=== PATIENT | male | born 1970 | race Caucasian/White ===

== ENCOUNTER 2019-09-02 13:44 | Emergency (ER) | payer OTHER, SELFPAY ==
[2019-09-02 13:44] VITALS: BP 147/103; PULSE 87; RESP 16; TEMP 36.9; BMI 30.7
[2019-09-02 14:15] VITALS: RESP 16
--- NOTE | 2019-09-02 14:56 | ED.DCSUM_ITS ---
- ER Visit Summary Date of Service: 09/02/19 Chief Complaint: Right lower jaw dental pain History of Present Illness: The patient is a 49 M with history of hypertension. States that the dental pain for the last 4 days. Denies any fall or trauma. Believes he has an appointment with [facility] tomorrow. Denies any fever or chills. No swelling of his face or jaw. No trouble swallowing or breathing. Physical Examination: Alert male no acute distress sitting upright in his chair. Vital signs are stable afebrile. H EENT exam is multiple missing teeth. His right lower jaw is complaining of pain he has a tooth that has multiple cavities. There is no gingival abscess. No gum swelling. There is no trismus. He is able to open and close his mouth. There is no facial swelling. No trouble breathing or swallowing. The floor of his mouth under his tongue is unremarkable and nonswollen. He has multiple areas of cavities on multiple teeth. Neck nontender. No lymphadenopathy. No swelling. Lungs clear to auscultation. Heart regular rhythm no murmur. Otherwise exam unremarkable. Test Results: None Emergency Department Course and Treatment: Patient with dental pain secondary to dental caries. Treatment Plan: Motrin for pain. I did explain to the patient I do not write for narcotics for dental pain. He will be given 2 [place] to take for pain when he gets home. Disposition: Discharge Impression: Dental pain secondary to dental caries This note was generated with [employer] dictation software. It may contain incorrect words, spelling, and punctuation that were not noted in review of the chart prior to signing ED Disposition - Plan for ED Patient: Referrals: Parker Bell MD [Primary Care Provider] -
--- NOTE | 2019-09-02 14:58 | ED.DEP ---
ED Disposition - Plan for ED Patient: Disposition: Home or Assisted Living Instructions: Dental Pain Prescriptions: Naproxen [Naprosyn] 500 mg PO BID PRN PRN #20 tab PRN Reason: Pain Or Fever Prescription Printed Referrals: Parker Bell MD [Primary Care Provider] - As Needed Additional Instructions: Follow-up with your dentist with your scheduled appointment. Ice to jaw decrease pain. Naprosyn for pain and inflammation. Appears to be the pain from dental cavities. There is no signs of infection at this time. This time he do not need antibiotic.
[2019-09-02] MEDS: HYDROcodone Bitartrate/Apap 5/325 Tablet PO (15:10)
[2019-09-02 15:11] VITALS: RESP 16
== END 2019-09-02 15:12 | disposition home or self-care (01) ==
LOC: ED 15:00
PROVIDERS: Emergency Provider Emergency Medicine; Family Provider Family Medicine; PCP Family Medicine
DX: K02.9 Dental caries, unspecified (principal); I10 Essential (primary) hypertension
CPT/HCPCS: 99283

== ENCOUNTER 2021-06-08 09:44 | Emergency (ER) | payer SELFPAY ==
[2021-06-08 09:45] VITALS: BP 149/107; PULSE 78; RESP 16; TEMP 35.9; O2SAT 100; BMI 29.7
--- NOTE | 2021-06-08 10:21 | RAD_ITS ---
STUDY: X-RAY - RIGHT KNEE REASON FOR EXAM: Male, 50 years old. Knee pain TECHNIQUE: 5 view(s) of the knee. COMPARISON: None. FINDINGS: Normal visualized distal femur. Normal visualized proximal tibia and fibula. Normal proximal tibiofibular articulation. Normal medial femorotibial compartment. Normal lateral femorotibial compartment. Normal patellofemoral articulation. The soft tissue structures are unremarkable. RAD/Knee 4 or More Views IMPRESSION: Normal x-ray examination of the knee. Electronically Signed: Niko Tse MD at 10:56 EDT , Service support ,
[2021-06-08] MEDS: Ketorolac 15 MG/ML Vial IM (10:27)
--- NOTE | 2021-06-08 11:20 | EX.ED.DYSGE1 ---
HPI History of Present Illness Chief Complaint: Lower Extremity Injury Narrative Narrative: 50-year-old male presenting with right knee pain. He describes it on the medial aspect of the right knee. Patient states that he has had pain here on and off for the last month. Today he states that he kneeled down to pick something up and felt acute pain here. He denies any previous known injury to this knee. Patient denies any surgeries on the knee. Patient states he is otherwise healthy and physically active. He denies paresthesias. He denies any direct trauma. Patient states he is having difficulty ambulating secondary to pain. [facility] Medical History Hypertension Medical History no medical history Home Medications losartan 100 mg PO DAILY 09/02/19 [History Last Taken Unknown] naproxen 500 mg PO BID PRN PRN #20 tab 09/02/19 [Rx Last Taken Unknown] naproxen [Naprosyn] 500 mg PO BID #30 tab 06/08/21 [Rx Last Taken Unknown] Allergy/AdvReac Type Severity Reaction Status Date / Time No Known Allergies Allergy Verified 09/02/19 13:46 Social History Smoking Status: Former smoker ROS ROS ED Constitutional Constitutional ED: Denies chills, fever(s) or weight loss Eyes Eyes: Denies blurry vision or change in vision ENT ENT ED: Denies rhinorrhea or sore throat Cardiovascular Cardiovascular: Denies chest pain or palpitations Respiratory/Chest Respiratory/Chest: Denies cough or dyspnea Gastrointestinal Gastrointestinal: Denies abdominal pain, nausea or vomiting Genitourinary Genitourinary ED: Denies dysuria or hematuria Musculoskeletal Musculoskeletal: Reports other Details: Right knee pain ; Denies back pain or neck pain Integumentary Denies Abrasions or rash Neurologic Neurologic: Denies headache(s) or paresthesias EXAM Physical Exam Const Vital Signs: 06/08/21 09:45 Temperature 96.7 F L Temperature Source Temporal Pulse Rate 78 Respiratory Rate 16 Blood Pressure 149/107 H Blood Pressure Mean 121 Pulse Ox 100 Oxygen Delivery Method Room Air Positive well nourished General Appearance ED: NAD; Negative for pallor HEENT Reports moist mucous membranes Negative for trauma Eyes PERRL and EOMs intact bilaterally Resp normal respiratory effort and clear to auscultation bilaterally Cardio regular rate and regular rhythm Extremity Extremity Narrative: Tenderness to palpation over the medial aspect of the right knee. Right extensor mechanism is intact. Range of motion is somewhat limited in full extension secondary to pain. There is pain elicited with valgus strain. No ligament laxity noted. Neuro oriented x3 and CN's II-XII intact bilaterally Sensorium / Orientation: alert Psych mental status grossly normal Skin no rashes or lesions noted General Skin Exam: Negative for jaundice or pallor MDM MDM MDM Narrative Medical decision making narrative: Patient was given a shot of Toradol IM. I obtained images of the right knee which on my interpretation showed no acute fracture or subluxation. The radiologist does agree. Patient was placed in an Billy wrap and he already has crutches. He will be given follow-up with his primary care provider if he is not improving his primary care refer him to orthopedics. I think likely this is a meniscal tear. Patient is counseled on ice, elevation, compression, alternating Tylenol and ibuprofen. Patient given return precautions. Impression: 1. Right knee sprain Radiography Diagnostic Testing: Radiology Impression Knee X-Ray 06/08/21 10:21 IMPRESSION: Normal x-ray examination of the knee. Electronically Signed: Niko Tse MD at 10:56 EDT , Service support , Discharge Plan Triage Chief Complaint: Lower Extremity Injury ED Provider: Gentry Harris Dx/Rx/DC Orders Instructions: ED Meniscal Injury Knee Poss, ED Knee Sprain Prescriptions: New naproxen [Naprosyn] 500 mg tablet 500 mg PO BID Qty: 30 RF: 0 No Action losartan 100 MG tablet 100 mg PO DAILY RF: 0 naproxen 500 MG tablet 500 mg PO BID PRN PRN (Reason: Pain Or Fever) Qty: 20 RF: 0 Primary Care Provider: David Loving Referrals: David Loving MD [Primary Care Provider] - Disposition Disposition: Home, Self Care
[2021-06-08 11:28] VITALS: BP 127/74; PULSE 68; RESP 17; O2SAT 97
== END 2021-06-08 11:29 | disposition home or self-care (01) ==
PROVIDERS: Emergency Provider Student in an Organized Health Care Education/Training Program; PCP Family Medicine
DX: S83.91XA Sprain of unspecified site of right knee, initial encounter (principal); Z87.891 Personal history of nicotine dependence; X58.XXXA Exposure to other specified factors, initial encounter
CPT/HCPCS: 73564; 96372; 99282

== ENCOUNTER 2021-06-30 11:47 | Inpatient (IN) | payer MEDICAID, SELFPAY ==
[2021-06-30 11:47] VITALS: BP 130/114; PULSE 87; RESP 22; TEMP 36.2; O2SAT 100; BMI 28.1
[2021-06-30 12:12] LABS: Absolute Lymphocyte Count 1.67 X10^3/uL (0.83-4.51); Basophil# 0.04 X10^3/uL; Basophil% 0.3 % (0-1); Eosinophil# 0.25 X10^3/uL; Eosinophils% 1.9 % (0-5); Hematocrit 47.9 % (40-54); Hemoglobin 15.8 g/dL (13.0-16.5); Lymphocyte # 1.67 X10^3/ul (0.83-4.51); Lymphocyte % 12.8 % (19-41); Mean Corpuscular Hgb 31.7 pg (27.0-32.0); Mean Corpuscular Volume 96.2 fL (80-94); Mean Platelet Vol. 9.3 fl (6.2-12.0); Monocyte# 1.08 X10^3/uL; Monocyte% 8.3 % (0-10); NRBC Flagged by Analyzer 0 % (0-5); Neutrophil # 9.96 X10^3/uL (2.7-7.7); Neutrophil % 76.2 % (47-70); Platelet Count 252 K/mm3 (150-450); RBC Distribution Width CV 13.1 % (11.6-14.6); RBC Distribution Width SD 46.6 fl (35.1-43.9); Red Blood Count 4.98 M/mm3 (4.6-6.2); White Blood Count 13.1 K/mm3 (4.4-11.0)
[2021-06-30 12:23] LABS: ALB/GLOB Ratio 0.8 RATIO (0.9-2.4); AST(SGOT) 10 U/L (15-37); Alanine Aminotransfer ALT/SGPT 16 U/L (16-61); Albumin, Serum 3.5 g/dL (3.2-5.0); Alkaline Phosphatase 59 U/L (45-117); Anion Gap 5 (5-15); BUN 12 mg/dL (7-18); BUN/Creat Ratio 11.4 RATIO (10-20); Chloride 103 mmol/L (98-107); Creatinine, Serum 1.05 mg/dL (0.70-1.30); EST Glomerular Filtration Rate 79 mL/min (>60); Est Glom Filt Rate - Afr Amer 95 mL/min (>60); Globulin 4.5 g/dL (2.2-4.2); Glucose 110 mg/dL (74-106); Lipase 112 U/L (73-393); Potassium 4.4 mmol/L (3.5-5.1); Sodium Level 138 mmol/L (136-145)
--- NOTE | 2021-06-30 12:52 | CT_ITS ---
STUDY: CT ABDOMEN AND PELVIS WITHOUT CONTRAST REASON FOR EXAM: Male, 51 years old. Right lower quadrant and abdominal pain RADIATION DOSAGE (If Supplied By Facility): CTDIvol = ( 12.06 ) mGy, DLP = ( 629.76 ) mGycm TECHNIQUE: Transaxial images were obtained from the dome of the diaphragm to the symphysis pubis without oral contrast, and without intravenous contrast. Sagittal and coronal images were reconstructed. Individualized dose optimization techniques were used for this CT. COMPARISON: None. FINDINGS: Examination is technically suboptimal due to lack of IV contrast. Diagnostic information is available. The visualized lung bases are unremarkable. The visualized portions of the heart are within normal limits. Normal liver. Normal gallbladder and extrahepatic biliary system. Normal spleen. Normal pancreas. Normal bilateral adrenal glands. Normal right kidney. Normal left kidney. There is severe diverticulitis of the proximal sigmoid with local perforation and gas in the mesentery adjacent to the sigmoid. There is no abscess. There is milder severely the reticulitis along the descending colon. There is no intestinal obstruction. Appendix is normal. Normal abdominal aorta. Normal inferior vena cava. Normal retroperitoneum. Normal urinary bladder. Normal abdominal wall. Normal osseous structures. CT/Abdomen/Pel W ORAL Cont Only IMPRESSION: 1. Severe sigmoid diverticulitis, small perforation. 2. No abscess. 3. Emergency surgical referral advised. Electronically Signed: Ariane Bullard MD at 15:42 EDT Tel , Service support ,
--- NOTE | 2021-06-30 12:52 | EDS_ITS ---
HPI History of Present Illness Chief Complaint: Abd Pain Informant: patient Narrative Narrative: 51-year-old male presents to the emergency department with abdominal pain. Patient states that yesterday he was experiencing diarrhea and noticed abdominal discomfort in his periumbilical area after eating [employer]. He states the pain has worsened and is now more in the right lower quadrant. He denies any fevers. No urinary symptoms. States he is never had this before. The patient is screaming at the top of his lungs for somebody to hurry up and get into his room because he is tired of waiting. [facility] Medical History Hypertension Home Medications losartan 100 mg PO DAILY 09/02/19 [History Last Taken Unknown] naproxen 500 mg PO BID PRN PRN #20 tab 09/02/19 [Rx Last Taken Unknown] naproxen [Naprosyn] 500 mg PO BID #30 tab 06/08/21 [Rx Last Taken Unknown] Allergy/AdvReac Type Severity Reaction Status Date / Time No Known Allergies Allergy Verified 09/02/19 13:46 Social History (Updated 06/30/21 @ 12:[address] Kodi Ashraf DO) Smoking Status: Former smoker substance use type: does not use ROS ROS ED Constitutional Constitutional ED: Denies chills or weight loss Eyes Eyes: Denies change in vision or diplopia ENT ENT ED: Denies ear pain, rhinorrhea or sore throat Cardiovascular Cardiovascular: Denies chest pain, orthopnea, palpitations or racing heartbeat Respiratory/Chest Respiratory/Chest: Denies cough, dyspnea or orthopnea Gastrointestinal Gastrointestinal: Reports abdominal pain and diarrhea; Denies nausea or vomiting Genitourinary Genitourinary ED: Denies dysuria, hematuria or urinary frequency Musculoskeletal Musculoskeletal: Denies arthralgias or myalgias Integumentary Denies abscess or rash Neurologic Neurologic: Denies headache(s) or weakness Psychiatric Psychiatric: Denies anxiety, depression, suicidal ideation or suicidal thoughts Endocrine Endocrinology: Denies polydipsia, polyphagia or polyuria Allergic/Immunologic Allergic/Immunologic ED: Denies mouth swelling, tongue swelling or urticaria EXAM Physical Exam Const Vital Signs: 06/30/21 11:47 06/30/21 15:17 Temperature 97.2 F L Temperature Source Temporal Pulse Rate 87 104 H Respiratory Rate 22 H 18 Blood Pressure 130/114 H 141/89 H Blood Pressure Mean 119 106 Pulse Ox 100 98 Oxygen Delivery Method Room Air Room Air Positive well nourished and well developed General Appearance ED: well developed HEENT Reports normocephalic, head/scalp atraumatic, TM's clear and moist mucous membranes Negative for trauma Tympanic Membrane ED: Yes TM's clear Eyes PERRL and EOMs intact bilaterally Neck no lymphadenopathy, supple and no JVD Resp normal respiratory effort and clear to auscultation bilaterally Cardio regular rate, regular rhythm and no murmurs GI non-tender Auscultation: normoactive bowel sounds Palpation: soft, tender RLQ and guarding Back/Spine no CVA tenderness and normal ROM Extremity normal to inspection General Extremety ED: Negative for edema General Extremity: Negative for edema Neuro oriented x3 and CN's II-XII intact bilaterally Sensorium / Orientation: alert Motor Exam: strength 5/5 throughout Psych mental status grossly normal Mood & Affect: Negative for depressed or tearful Skin no rashes or lesions noted and no wounds MDM MDM MDM Narrative Medical decision making narrative: White count is elevated at 13.1. Urinalysis negative. CMP showed a glucose of 110. CT the abdomen pelvis with oral and IV contrast injury resulted in sigmoid diverticulitis with local perforation. Patient received Zosyn morphine fluids and Zofran. Patient will be admitted to the hospital for further care. Lab Data Attestation: I reviewed the patient's lab results. Labs: Laboratory Results - last 24 hr 06/30/21 06/30/21 06/30/21 12:01 12:01 14:10 WBC 13.1 H RBC 4.98 Hgb 15.8 Hct 47.9 MCV 96.2 H MCH 31.7 MCHC 33.0 RDW Std Deviation 46.6 H RDW Coeff of Juan 13.1 Plt Count 252 MPV 9.3 Immature Gran % (Auto) 0.500 Neut % (Auto) 76.2 H Lymph % (Auto) 12.8 L [place] % (Auto) 8.3 Eos % (Auto) 1.9 Baso % (Auto) 0.3 Absolute Neuts (auto) 10.0 H Absolute Lymphs (auto) 1.67 Nucleated RBC % 0 Sodium 138 Potassium 4.4 Chloride 103 Carbon Dioxide 30.0 Anion Gap 5 BUN 12 Creatinine 1.05 Estim Creat Clear Calc 89.30 Est GFR (MDRD) Af Amer 95 Est GFR (MDRD) Non-Af 79 BUN/Creatinine Ratio 11.4 Glucose 110 H Calcium 9.0 Total Bilirubin 1.00 AST 10 L ALT 16 Alkaline Phosphatase 59 Total Protein 8.0 Albumin 3.5 Globulin 4.5 H Albumin/Globulin Ratio 0.8 L Lipase 112 Urine Color Yellow Urine Clarity Clear Urine pH 5.0 Ur Specific [place] 1.020 Urine Protein 15 H Urine Glucose (UA) Normal Urine Ketones Negative Urine Occult Blood 10 H Urine Nitrite Negative Urine Bilirubin Negative Urine Urobilinogen Normal Ur Leukocyte Esterase Negative Urine RBC 0 SEEN Urine WBC 0 SEEN Ur Squamous Epith Cells 0 SEEN Urine Bacteria 0 SEEN Urine Mucus 2+ Radiography Diagnostic Testing: Clinical Impression(s) from Imaging Studies Abdomen CT 06/30/21 12:52 IMPRESSION: 1. Severe sigmoid diverticulitis, small perforation. 2. No abscess. 3. Emergency surgical referral advised. Electronically Signed: Ariane Bullard MD at 15:42 EDT Tel , Service support , Discharge Plan Triage Chief Complaint: Abd Pain ED Provider: Kodi Ashraf Dx/Rx/DC Orders Clinical Impression: Diverticulitis of colon with perforation Prescriptions: No Action losartan 100 MG tablet 100 mg PO DAILY RF: 0 naproxen 500 MG tablet 500 mg PO BID PRN PRN (Reason: Pain Or Fever) Qty: 20 RF: 0 naproxen [Naprosyn] 500 mg tablet 500 mg PO BID Qty: 30 RF: 0 Primary Care Provider: David Loving Referrals: David Loving MD [Primary Care Provider] - Disposition Disposition: Acute Care Hospital [facility]
[2021-06-30] MEDS: Ondansetron 4 MG/2 ML Vial IV (13:04)
[2021-06-30] MEDS: Morphine 2 MG/ML Syringe IV (13:04)
[2021-06-30] MEDS: 0.9% Normal Saline 1,000 ML 125 ML IV (13:04)
[2021-06-30 14:15] LABS: Bacteria 0 SEEN /hpf (None Seen); Red Blood Cells-Urine 0 SEEN /hpf (0-5); Squamous Epithelial Cells - UA 0 SEEN /hpf (0-5); White Blood Cells 0 SEEN /hpf (0-5)
[2021-06-30 14:27] LABS: Color, Urine Yellow (Yellow); Glucose, Dipstick Normal (Normal); Ketone-Dipstick Negative (Negative); Leukocyte Esterase-Dipstick Negative /ul (Negative); Nitrite-Dipstick Negative (Negative); Occult Blood-Urine 10 /ul (Negative); Protein-Dipstick 15 mg/dl (Negative); Urine Bilirubin Dipstick Negative (Negative); Urine Clarity Clear (Clear); Urine Urobilinogen Normal (Normal)
[2021-06-30 14:29] LABS: Mucous, Urine 2+ /hpf (<or=2+)
[2021-06-30 15:17] VITALS: BP 141/89; PULSE 104; RESP 18; O2SAT 98
--- NOTE | 2021-06-30 15:57 | HP.PCM.HOS_ITS ---
HPI - General General Date of Admission: 06/30/21 HPI Narrative AJ NIXON, is a 51 M with a PMH as outlined who was admitted via the ED with a complaint of abdominal pain. Patient ate at [employer] yesterday, and she subsequently started having abdominal pain with diarrhea. Abdominal pain gradually worsened and was initially around the umbilicus and moved to the right lower quadrant. He had no fever or chills, nausea or vomiting or any urinary symptoms. Review of systems was otherwise negative. Vitals were BP of 141/89, WA of 104, RR of 18 and was saturating at 98% on room air. CBC showed wbc of 13, and Hb of 15.8 and platelets of 252. BMP was unremarkable, and urinalysis was unremarkable. CT of the abdomen and pelvis showed severe sigmoid diverticulitis with no abscess formation. He is being admitted to be managed for acute sigmoid diverticulitis with small perforation. [facility] Medical History (Updated 06/30/21 @ 17:16 by Zeynep Pierce) Asthma Depression Former smoker GERD (gastroesophageal reflux disease) Hypertension Substance abuse Allergy/AdvReac Type Severity Reaction Status Date / Time No Known Allergies Allergy Verified 09/02/19 13:46 Social History Smoking Status: Former smoker substance use type: does not use ROS Constitutional Constitutional: Denies anorexia, change in weight, chills, fatigue, fever(s), malaise or weakness Eyes Eyes: Denies change in vision ENT HEENT: Denies dysphagia Cardiovascular Cardiovascular: Denies chest pain, dyspnea on exertion, edema, lightheadedness, orthopnea, palpitations, paroxysmal nocturnal dyspnea or rapid heart rate Respiratory/Chest Respiratory/Chest: Denies cough, dyspnea, productive cough, shortness of breath at rest or shortness of breath with exertion Gastrointestinal Gastrointestinal: Reports abdominal pain, diarrhea and nausea; Denies coffee ground emesis, constipation, dyspepsia, hematemesis, hematochezia or vomiting Genitourinary Genitourinary: Denies burning urination or dysuria Musculoskeletal Musculoskeletal: Denies arthralgias, joint stiffness or joint swelling Neurologic Neurologic: Denies abnormal gait, confusion, dizziness, focal weakness, numbness or seizures Psychiatric Psychiatric: Denies anxiety Endocrine Endocrinology: Denies change in body appearance Hematologic/Lymphatic Hematologic/Lymphatic: Denies anemia Vital Signs Vital Signs Vital Signs: 06/30/21 11:47 06/30/21 15:17 Temperature 97.2 F L Temperature Source Temporal Pulse Rate 87 104 H Respiratory Rate 22 H 18 Blood Pressure 130/114 H 141/89 H Blood Pressure Mean 119 106 Pulse Ox 100 98 Oxygen Delivery Method Room Air Room Air Weight Weight: 207 lb 12.8 oz Body Mass Index (BMI) 28.1 Physical Exam Const alert, oriented x3 and healthy appearing General Appearance: cooperative HEENT normocephalic, head/scalp atraumatic, hearing grossly normal bilaterally and moist oral mucous membranes Eyes PERRL, EOMs intact bilaterally and conjunctivae normal Neck no lymphadenopathy Resp normal respiratory effort, no retractions, no use of accessory muscles and clear to auscultation bilaterally Cardio regular rate, regular rhythm, S1 normal heart sound, S2 normal heart sound and no murmurs GI normal to inspection, nondistended, normoactive bowel sounds GI Narrative: moderate right lower quadrant tenderness, no guarding or rebound t enderness. Extremity normal to inspection Peripheral Pulses: Yes pulses 2+ throughout Skin no rashes or lesions noted Neuro oriented x3, CN's II-XII intact bilaterally and moves all extremities Sensorium / Orientation: awake and alert Psych affect normal Results Lab / Micro Data Result Diagrams: 06/30/21 12:01 06/30/21 12:01 Labs: Laboratory Results - last 24 hr 06/30/21 12:01: WBC 13.1 H, RBC 4.98, Hgb 15.8, Hct 47.9, MCV 96.2 H, MCH 31.7, MCHC 33.0, RDW Std Deviation 46.6 H, RDW Coeff of Juan 13.1, Plt Count 252, MPV 9.3, Immature Gran % (Auto) 0.500, Neut % (Auto) 76.2 H, Lymph % (Auto) 12.8 L, [place] % (Auto) 8.3, Eos % (Auto) 1.9, Baso % (Auto) 0.3, Absolute Neuts (auto) 10.0 H, Absolute Lymphs (auto) 1.67, Nucleated RBC % 0 06/30/21 12:01: Sodium 138, Potassium 4.4, Chloride 103, Carbon Dioxide 30.0, Anion Gap 5, BUN 12, Creatinine 1.05, Estim Creat Clear Calc 89.30, Est GFR (MDRD) Af Amer 95, Est GFR (MDRD) Non-Af 79, BUN/Creatinine Ratio 11.4, Glucose 110 H, Calcium 9.0, Total Bilirubin 1.00, AST 10 L, ALT 16, Alkaline Phosphatase 59, Total Protein 8.0, Albumin 3.5, Globulin 4.5 H, Albumin/Globulin Ratio 0.8 L , Lipase 112 06/30/21 14:10: Urine Color Yellow, Urine Clarity Clear, Urine pH 5.0, Ur Specific [place] 1.020, Urine Protein 15 H, Urine Glucose (UA) Normal, Urine Ketones Negative, Urine Occult Blood 10 H, Urine Nitrite Negative, Urine Bilirubin Negative, Urine Urobilinogen Normal, Ur Leukocyte Esterase Negative, Urine RBC 0 SEEN, Urine WBC 0 SEEN, Ur Squamous Epith Cells 0 SEEN, Urine Bacteria 0 SEEN, Urine Mucus 2+ Radiology Impression Abdomen CT 06/30/21 12:52 IMPRESSION: 1. Severe sigmoid diverticulitis, small perforation. 2. No abscess. 3. Emergency surgical referral advised. Electronically Signed: Ariane Bullard MD at 15:42 EDT Tel , Service support , Assessment & Plan Assessment/Plan (1) Diverticulitis: (2) Diverticulitis of colon with perforation: PLAN: #Acute sigmoid diverticulitis with perforation * admit to med surg. * keep NPO for now. Hydrate with IVF NS @ 125cc/hr * start on IV zosyn * consult general surgery * IV morphine for pain * #Hypertension: on losartan DVT prophylaxis: lovenox Code status: * Patient counseled extensively about different types of CODE STATUS including full code, DNR CCA and DNR CCA. Patient elects to be full code. * Total [id number] time 16 minutes. Charges/Coding Visit Charges Inpatient E&M: 52348 Init Hosp L3 Procedures Hospitalists Procedures: 27263 Advncd Care Plan 30 Min
[2021-06-30] MEDS: Morphine 4 MG/ML Syringe IV ×2 (16:05→21:03)
[2021-06-30 16:48] VITALS: BP 141/89; PULSE 88; RESP 16; TEMP 36.2; O2SAT 99
[2021-06-30 16:59] VITALS: BMI 28.2
--- NOTE | 2021-06-30 16:59 | PCS.PANDOC ---
PANDEMIC DOCUMENTATION INITIATED: Date: 04/23/2021 Time: 190
--- NOTE | 2021-06-30 17:04 | CON.PCM.SX_ITS ---
Assessment & Plan Assessment/Plan (1) Diverticulitis of colon with perforation: PLAN: At the present time his abdomen is very soft. There is a chance that we might be able to treat him medically. His CAT scan looks extremely bad with regards to sigmoid diverticulitis with microperforation. He understands that if he does not improve there is a chance that he would need to have a sigmoid resection and possible colostomy. Agree with antibiotics and making him n.p.o. except for ice chips. HPI Consult Data Date of Consult: 06/30/21 HPI Narrative HPI Narrative: JA NIXON, is a 51 M with a PMH as outlined who was admitted via the ED with a complaint of abdominal pain. Patient ate at [employer] yesterday, and she subsequently started having abdominal pain with diarrhea. Abdominal pain gradually worsened and was initially around the umbilicus and moved to the right lower quadrant. He had no fever or chills, nausea or vomiting or any urinary symptoms. Review of systems was otherwise negative. Vitals were BP of 141/89, [place] of 104, RR of 18 and was saturating at 98% on room air. CBC showed wbc of 13, and Hb of 15.8 and platelets of 252. BMP was unremarkable, and urinalysis was unremarkable. CT of the abdomen and pelvis showed severe sigmoid diverticulitis with no abscess formation. He is being admitted to be managed for acute sigmoid diverticulitis with small perforation. [facility] Medical History Hypertension Home Medications losartan 100 mg PO DAILY 09/02/19 [History Last Taken Unknown] naproxen 500 mg PO BID PRN PRN #20 tab 09/02/19 [Rx Last Taken Unknown] naproxen [Naprosyn] 500 mg PO BID #30 tab 06/08/21 [Rx Last Taken Unknown] Allergy/AdvReac Type Severity Reaction Status Date / Time No Known Allergies Allergy Verified 09/02/19 13:46 Social History Smoking Status: Former smoker substance use type: does not use ROS Constitutional Constitutional: Denies chills, fatigue or fever(s) Cardiovascular Cardiovascular: Denies chest pain, dyspnea or palpitations Respiratory/Chest Respiratory/Chest: Denies cough, dyspnea or productive cough Gastrointestinal Gastrointestinal: Reports abdominal pain, diarrhea and nausea; Denies vomiting Genitourinary Genitourinary: Denies dysuria or flank pain Physical Exam Const alert, oriented x3 and no apparent distress General Appearance: cooperative HEENT normocephalic and head/scalp atraumatic Eyes PERRL and EOMs intact bilaterally Resp clear to auscultation bilaterally Cardio Rate: regular rate Rhythm: regular rhythm GI Palpation: tender suprapubic; Negative for hernia Lab / Micro Data Result Diagrams: 06/30/21 12:01 06/30/21 12:01 Labs: Laboratory Results - last 24 hr 06/30/21 12:01: WBC 13.1 H, RBC 4.98, Hgb 15.8, Hct 47.9, MCV 96.2 H, MCH 31.7, MCHC 33.0, RDW Std Deviation 46.6 H, RDW Coeff of Juan 13.1, Plt Count 252, MPV 9.3, Immature Gran % (Auto) 0.500, Neut % (Auto) 76.2 H, Lymph % (Auto) 12.8 L, [place] % (Auto) 8.3, Eos % (Auto) 1.9, Baso % (Auto) 0.3, Absolute Neuts (auto) 10.0 H, Absolute Lymphs (auto) 1.67, Nucleated RBC % 0 06/30/21 12:01: Sodium 138, Potassium 4.4, Chloride 103, Carbon Dioxide 30.0, Anion Gap 5, BUN 12, Creatinine 1.05, Estim Creat Clear Calc 89.30, Est GFR (MDRD) Af Amer 95, Est GFR (MDRD) Non-Af 79, BUN/Creatinine Ratio 11.4, Glucose 110 H, Calcium 9.0, Total Bilirubin 1.00, AST 10 L, ALT 16, Alkaline Phosphatase 59, Total Protein 8.0, Albumin 3.5, Globulin 4.5 H, Albumin/Globulin Ratio 0.8 L , Lipase 112 06/30/21 14:10: Urine Color Yellow, Urine Clarity Clear, Urine pH 5.0, Ur Specific [place] 1.020, Urine Protein 15 H, Urine Glucose (UA) Normal, Urine Ketones Negative, Urine Occult Blood 10 H, Urine Nitrite Negative, Urine Bilirubin Negative, Urine Urobilinogen Normal, Ur Leukocyte Esterase Negative, Urine RBC 0 SEEN, Urine WBC 0 SEEN, Ur Squamous Epith Cells 0 SEEN, Urine Bacteria 0 SEEN, Urine Mucus 2+ Radiology Impression Abdomen CT 06/30/21 12:52 IMPRESSION: 1. Severe sigmoid diverticulitis, small perforation. 2. No abscess. 3. Emergency surgical referral advised. Electronically Signed: Ariane Bullard MD at 15:42 EDT Tel , Service support ,
[2021-06-30] MEDS: oxyCODONE 5 MG Tablet PO ×2 (17:47→23:54)
[2021-06-30] MEDS: Acetaminophen 325 MG Tablet 650 MG PO ×2 (17:47→23:55)
[2021-06-30] MEDS: 0.9% Saline Lock 10 ML Syringe IV (17:48)
[2021-06-30 18:00] VITALS: PULSE 105
[2021-06-30 19:47] VITALS: BP 147/84; PULSE 104; RESP 18; TEMP 37.9; O2SAT 94
[2021-06-30 20:00] VITALS: PULSE 104
[2021-07-01] VITALS (18 sets, daily range): BP systolic 118–139; BP diastolic 74–101; PULSE 78–98; RESP 16–20; TEMP 36.3–37.5; O2SAT 92–100; BMI 28.2
--- NOTE | 2021-07-01 | COL_PTH ---
PATIENT: AJ NIXON LOC: MS3 U#:[id number] AGE/SX: 51/M ROOM: MA316 RE06/30/[address]: Dr. Adama Rolon DO : 1970 BED: 1 DIS: 07/05/2021 SPEC #: [id number] RECD: 07/02/21 07:35 STATUS: DOMINGO REQ #: [id number] ARIANNA: 07/01/21 00:[address]: Kodi Maya DEPT: SURGICAL PATHOLOGY RECD BY: Baldo Silverman ENTERED: 07/02/21 08:07 SP TYPE: COLON OTHR DR: MD Dr. Tita Cortés MD Dr. William Lago, MD Tissues: Colon, NOS Procedures: Surgery Specimen Level V Comments: @ Ordering doctor for SUV edited from to @ by JONATHAN at 07/02/21 141 @ Submitting doctor edited from to @ by JONATHAN at 07/02/21 1412 HEADER OPERATION: Sigmoid colectomy PRE-OP DIAGNOSIS: Diverticulitis of colon with perforation TISSUE SUBMITTED: Sigmoid colon MICROSCOPIC DIAGNOSIS Sigmoid colon, colectomy: Diverticulosis and diverticulitis. See comment. ZACHERY:rimma 07/04/2021 COMMENT Many of the ruptured diverticula show abscess formation in the pericolonic adipose tissue. MICROSCOPIC DESCRIPTION Slides are reviewed. GROSS DESCRIPTION Received in fixative is one container labeled with the patient's name and designated sigmoid colon. The specimen consists of a segment of colon with attached pericolonic adipose tissue measuring 16 cm in length. The serosal surface shows congestion and covered focally with barrera, purulent exudate. Both resection margins are stapled. No mucosal lesion is identified. Sections reveal multiple diverticula. The lumen contains fecal material. More sections will follow after fixation. / ZACHERY:rimma 07/02/21 Also present in the container are two detached pieces of bowel tissue with showing multiple warren measuring 5 x 1 x 0.5 cm and 4 x 0.5 x 0.5 cm. Many of the diverticula appear ruptured. The diverticula are also filled with fecal material. Sections of pericolonic adipose tissue do not reveal any obviously enlarged lymph node. Web Applications Developer sections are submitted in six cassettes as follows: 1 - resection margin, 2-5 ? diverticula, 6 - pericolonic adipose tissue. / SJ:rimma 07/03/21 TC:5 CPT: 77060
[2021-07-01] MEDS: 0.9% Normal Saline 1,000 ML 125 ML IV ×4 (02:09→16:55)
[2021-07-01] MEDS: Morphine 4 MG/ML Syringe IV ×2 (02:09→08:02)
[2021-07-01] MEDS: Acetaminophen 325 MG Tablet 650 MG PO (06:13)
[2021-07-01] MEDS: oxyCODONE 5 MG Tablet PO ×2 (06:14→10:08)
[2021-07-01 06:53] LABS: Absolute Lymphocyte Count 0.97 X10^3/uL (0.83-4.51); Basophil# 0.04 X10^3/uL; Basophil% 0.2 % (0-1); Eosinophil# 0.01 X10^3/uL; Eosinophils% 0.1 % (0-5); Hematocrit 45.1 % (40-54); Hemoglobin 15.2 g/dL (13.0-16.5); Lymphocyte # 0.97 X10^3/ul (0.83-4.51); Lymphocyte % 5.7 % (19-41); Mean Corp Hgb Conc 33.7 g/dL (32-36); Mean Corpuscular Hgb 31.8 pg (27.0-32.0); Mean Corpuscular Volume 94.4 fL (80-94); Mean Platelet Vol. 9.6 fl (6.2-12.0); Monocyte# 0.89 X10^3/uL; Monocyte% 5.2 % (0-10); NRBC Flagged by Analyzer 0 % (0-5); Neutrophil % 87.9 % (47-70); Platelet Count 226 K/mm3 (150-450); RBC Distribution Width CV 13.1 % (11.6-14.6); RBC Distribution Width SD 45.8 fl (35.1-43.9); Red Blood Count 4.78 M/mm3 (4.6-6.2); White Blood Count 17.1 K/mm3 (4.4-11.0)
[2021-07-01 07:07] LABS: Anion Gap 7 (5-15); BUN 12 mg/dL (7-18); BUN/Creat Ratio 11.9 RATIO (10-20); Calcium,Total 8.3 mg/dL (8.5-10.1); Chloride 100 mmol/L (98-107); Creatinine, Serum 1.01 mg/dL (0.70-1.30); EST Glomerular Filtration Rate 82 mL/min (>60); Est Glom Filt Rate - Afr Amer 99 mL/min (>60); Estimated Creatinine Clearance 92.84 ml/min; Glucose 125 mg/dL (74-106); Sodium Level 136 mmol/L (136-145)
[2021-07-01] MEDS: 0.9% Saline Lock 10 ML Syringe IV (08:02)
--- NOTE | 2021-07-01 09:38 | PCM.PN.SRG ---
Subjective Subjective No improvement in pain today. No bowel movements. Objective Data Objective Data Pain is significantly worse in the left lower quadrant today. Positive peritoneal irritation is identified. Vital Signs: Vital Signs Temp Pulse Resp BP Pulse Ox 98.7 F 90 18 130/74 H 97 07/01/21 02:02 07/01/21 07:30 07/01/21 02:02 07/01/21 02:02 07/01/21 02:02 Oxygen Delivery Method Room Air Weight: 208 lb 1.862 oz Body Mass Index (BMI) 28.2 Intake & Output: Intake and Output for Last 24 Hours 06/29/21 06/30/21 07/01/21 23:59 23:59 23:59 Intake Total 1100.5 / 1100.5 1079.25 / 1079.25 Balance 1100.5 / 1100.5 1079.25 / 1079.25 Lab / Micro Data Result Diagrams: 07/01/21 06:15 07/01/21 06:15 Labs: Laboratory Results - last 24 hr 06/30/21 12:01: WBC 13.1 H, RBC 4.98, Hgb 15.8, Hct 47.9, MCV 96.2 H, MCH 31.7, MCHC 33.0, RDW Std Deviation 46.6 H, RDW Coeff of Juan 13.1, Plt Count 252, MPV 9.3, Immature Gran % (Auto) 0.500, Neut % (Auto) 76.2 H, Lymph % (Auto) 12.8 L, [place] % (Auto) 8.3, Eos % (Auto) 1.9, Baso % (Auto) 0.3, Absolute Neuts (auto) 10.0 H, Absolute Lymphs (auto) 1.67, Nucleated RBC % 0 06/30/21 12:01: Sodium 138, Potassium 4.4, Chloride 103, Carbon Dioxide 30.0, Anion Gap 5, BUN 12, Creatinine 1.05, Estim Creat Clear Calc 89.30, Est GFR (MDRD) Af Amer 95, Est GFR (MDRD) Non-Af 79, BUN/Creatinine Ratio 11.4, Glucose 110 H, Calcium 9.0, Total Bilirubin 1.00, AST 10 L, ALT 16, Alkaline Phosphatase 59, Total Protein 8.0, Albumin 3.5, Globulin 4.5 H, Albumin/Globulin Ratio 0.8 L, Lipase 112 06/30/21 14:10: Urine Color Yellow, Urine Clarity Clear, Urine pH 5.0, Ur Specific [place] 1.020, Urine Protein 15 H, Urine Glucose (UA) Normal, Urine Ketones Negative, Urine Occult Blood 10 H, Urine Nitrite Negative, Urine Bilirubin Negative, Urine Urobilinogen Normal, Ur Leukocyte Esterase Negative, Urine RBC 0 SEEN, Urine WBC 0 SEEN, Ur Squamous Epith Cells 0 SEEN, Urine Bacteria 0 SEEN, Urine Mucus 2+ 07/01/21 06:15: Sodium 136, Potassium 4.0, Chloride 100, Carbon Dioxide 29.0, Anion Gap 7, BUN 12, Creatinine 1.01, Estim Creat Clear Calc 92.84, Est GFR (MDRD) Af Amer 99, Est GFR (MDRD) Non-Af 82, BUN/Creatinine Ratio 11.9, Glucose 125 H, Calcium 8.3 L 07/01/21 06:15: WBC 17.1 H, RBC 4.78, Hgb 15.2, Hct 45.1, MCV 94.4 H, MCH 31.8, MCHC 33.7, RDW Std Deviation 45.8 H, RDW Coeff of Juan 13.1, Plt Count 226, MPV 9.6, Immature Gran % (Auto) 0.900, Neut % (Auto) 87.9 H, Lymph % (Auto) 5.7 L, [place] % (Auto) 5.2, Eos % (Auto) 0.1, Baso % (Auto) 0.2, Absolute Neuts (auto) 15.0 H, Absolute Lymphs (auto) 0.97, Nucleated RBC % 0 Radiography Diagnostic Testing: Radiology Impression Abdomen CT 06/30/21 12:52 IMPRESSION: 1. Severe sigmoid diverticulitis, small perforation. 2. No abscess. 3. Emergency surgical referral advised. Electronically Signed: Ariane Bullard MD at 15:42 EDT Tel , Service support , Assessment & Plan Assessment/Plan (1) Diverticulitis of colon with perforation: PLAN: I believe the patient needs to go to surgery and have an open sigmoid colectomy possible Amato's procedure patient understands that I will try to put him back together however if it looks like there is too much purulence in this area that I will give him a temporary colostomy.I have counseled the patient as to the risks of the procedure, including but not limited to: infection, bleeding, injury to any blood vessels/nerves, injury to any bowel/bladder, injury to any intraabdominal organs such as the liver/spleen, perforation of the GI tract, intraabdominal abscess/bleeding, incisional hernias, injury to the common bile duct/biliary ducts, injury to the spermatic cord/vessels/testicles, recurrence of hernia(s), complications of anesthesia, etc. The patient verbalizes understanding.
[2021-07-01] MEDS: Lubricating Jelly 60 GM Tube 30 GM TOPICAL (12:00)
--- NOTE | 2021-07-01 12:25 | PN.HOSP_ITS ---
Subjective Subjective Patient seen and examined. He still complains of abdominal pain. He denies any nausea vomiting or fever. WBC has trended upwards to 17 from 13 on admission. General surgery reviewed him this morning and recommends sigmoidectomy as they do not think that diverticulitis will improve with conservative management c onsidering the degree of pain he is still having. Objective Data Objective Data Vital Signs: Vital Signs Temp Pulse Resp BP Pulse Ox 98.4 F 85 16 118/87 H 98 07/01/21 10:49 07/01/21 10:49 07/01/21 10:49 07/01/21 10:49 07/01/21 10:49 Oxygen Delivery Method Room Air Weight: 208 lb 1.862 oz Body Mass Index (BMI) 28.2 Intake & Output: Intake and Output for Last 24 Hours 06/29/21 06/30/21 07/01/21 23:59 23:59 23:59 Intake Total 1100.5 / 1100.5 1129.25 / 1129.25 Balance 1100.5 / 1100.5 1129.25 / 1129.25 Lab / Micro Data Result Diagrams: 07/01/21 06:15 07/01/21 06:15 Labs: Laboratory Results - last 24 hr 06/30/21 14:10: Urine Color Yellow, Urine Clarity Clear, Urine pH 5.0, Ur Specific [place] 1.020, Urine Protein 15 H, Urine Glucose (UA) Normal, Urine Ketones Negative, Urine Occult Blood 10 H, Urine Nitrite Negative, Urine Bilirubin Negative, Urine Urobilinogen Normal, Ur Leukocyte Esterase Negative, Urine RBC 0 SEEN, Urine WBC 0 SEEN, Ur Squamous Epith Cells 0 SEEN, Urine Bacteria 0 SEEN, Urine Mucus 2+ 07/01/21 06:15: Sodium 136, Potassium 4.0, Chloride 100, Carbon Dioxide 29.0, Anion Gap 7, BUN 12, Creatinine 1.01, Estim Creat Clear Calc 92.84, Est GFR (MDRD) Af Amer 99, Est GFR (MDRD) Non-Af 82, BUN/Creatinine Ratio 11.9, Glucose 125 H, Calcium 8.3 L 07/01/21 06:15: WBC 17.1 H, RBC 4.78, Hgb 15.2, Hct 45.1, MCV 94.4 H, MCH 31.8, MCHC 33.7, RDW Std Deviation 45.8 H, RDW Coeff of Juan 13.1, Plt Count 226, MPV 9.6, Immature Gran % (Auto) 0.900, Neut % (Auto) 87.9 H, Lymph % (Auto) 5.7 L, [place] % (Auto) 5.2, Eos % (Auto) 0.1, Baso % (Auto) 0.2, Absolute Neuts (auto) 15.0 H, Absolute Lymphs (auto) 0.97, Nucleated RBC % 0 Micro: Microbiology 07/01/21 10:55 Nasal Secretion SARS-CoV-2 Antigen (Rapid) - Final Radiography Diagnostic Testing: Radiology Impression Abdomen CT 06/30/21 12:52 IMPRESSION: 1. Severe sigmoid diverticulitis, small perforation. 2. No abscess. 3. Emergency surgical referral advised. Electronically Signed: Ariane Bullard MD at 15:42 EDT Tel , Service support , Physical Exam Const alert, oriented x3 and healthy appearing General Appearance: cooperative Exam Limitations: no limitations HEENT normocephalic, head/scalp atraumatic, hearing grossly normal bilaterally and moist oral mucous membranes Head and Scalp: normocephalic Eyes PERRL, EOMs intact bilaterally and conjunctivae normal Neck no lymphadenopathy Resp normal respiratory effort, no retractions, no use of accessory muscles and clear to auscultation bilaterally Cardio regular rate, regular rhythm, S1 normal heart sound, S2 normal heart sound and no murmurs GI normal to inspection, nondistended, normoactive bowel sounds GI Narrative: moderate right lower quadrant tenderness, no guarding or rebound tenderness. Extremity normal to inspection Peripheral Pulses: Yes pulses 2+ throughout Skin no rashes or lesions noted Neuro oriented x3, CN's II-XII intact bilaterally and moves all extremities Sensorium / Orientation: awake and alert Psych affect normal Assessment & Plan Assessment/Plan (1) Diverticulitis: (2) Diverticulitis of colon with perforation: PLAN: #Acute sigmoid diverticulitis with perforation * still having abdominal pain. wbc has trended up to 17 from 13 * on IV zosyn. on IV morphine for pain * general surgery on board * for sigmoid colectomy today, per general surgery, as abdominal pain is not improving and wbc has also trended upwards. * on IV morphine prn for pain. * continue gentle hydration with IVF * #Hypertension: on losartan DVT prophylaxis: lovenox Code status: * full code Charges/Coding Visit Charges Inpatient E&M: 04929 Subs Hosp L3
--- NOTE | 2021-07-01 13:18 | OP.PCM_ITS ---
Problems Associated Problem List Diagnoses (1) Diverticulitis of colon with perforation: Report of Operation Date of Procedure: 07/01/21 Pre-Operative Diagnosis: Sigmoid diverticulitis with perforation Post-Operative Diagnosis: Same Surgery/Procedure Performed:: Open sigmoid colectomy Surgeon: Kodi Maya property caretaker: Haily Rehman Type of Anesthesia: General Anesthesiologist: Vickey Otero Specimen's removed: Sigmoid colon Drains: 15 round Gerson-Deshpande Estimated Blood Loss (mL): < 100 cc Fluids Replaced: 1800 cc LR Description of Procedure: Patient was brought into the operating room. Placed in the supine position. Under excellent general anesthesia legs were placed up in stirrups Ramos catheter was placed the abdomen and perineal area was sterilely prepped and draped in the usual fashion. Midline incision was made going around the right side of the umbilicus area. Got into the area patient had a significant amount of purulent fluid within the pelvis and in the sigmoid colon I detached the small intestines from this Bookwalter retractor was then used to pack everything off. Identified the perforated area. I transected proximal and distal to this with a 75 linear cutter. And then came down on the mesentery with the LigaSure. I had excellent hemostasis. The 2 ends came together quite nicely under no tension. I then placed bowel clamps both proximally and distally cut out the suture line I then did a handsewn 2 layered closure) with interrupted 3-0 GI silks. I then tested the anastomosis it was airtight. I irrigated out the pelvis and abdominal area with 3 L of warm irrigation. I ran the small bowel there was no pockets of pus identified. NG tube was checked and was in good position. A 15 round Gerson-Deshpande drain was then placed on the left side going down into the pelvis and near the anastomosis. It was sutured in place with a 3-0 Nurolon. The abdomen was closed. Fascia was brought together with #1 PDS. Local was injected. Deep dermal stitches of 3-0 Vicryl. Then a running 4 Monocryl. Steri-Strips were applied sterile dressings were applied and the patient tolerated the procedure well. All needle and sponge counts were correct. Admit VTE Documentation VTE Present on Admission: No VTE Mechan Device Prophylaxis: SCD's VTE Pharm Prophylaxis ordered?: No Reason prophylaxis not ordered:: Treatment Not Indicated
[2021-07-01] MEDS: Bupivacaine Mpf 0.5% 30 ML VIAL (13:53)
[2021-07-01 14:36] LABS: Bedside Glucose 142 mg/dL (70-110)
[2021-07-01] MEDS: HYDROmorphone 0.5 MG/0.5 ML SYRINGE IV (21:46)
[2021-07-02] VITALS (8 sets, daily range): BP systolic 120–152; BP diastolic 84–107; PULSE 68–88; RESP 16–18; TEMP 36.7–37.2; O2SAT 96–100
[2021-07-02] MEDS: 0.9% Normal Saline 1,000 ML 125 ML IV ×3 (02:36→16:39)
[2021-07-02 07:02] LABS: Absolute Lymphocyte Count 0.62 X10^3/uL (0.83-4.51); Absolute Neutrophil Count 10.8 X10^3/uL (2.0-7.7); Basophil# 0.02 X10^3/uL; Basophil% 0.2 % (0-1); Hemoglobin 13.6 g/dL (13.0-16.5); Lymphocyte # 0.62 X10^3/ul (0.83-4.51); Mean Corp Hgb Conc 33.2 g/dL (32-36); Mean Corpuscular Hgb 31.4 pg (27.0-32.0); Mean Corpuscular Volume 94.7 fL (80-94); Mean Platelet Vol. 10.2 fl (6.2-12.0); Monocyte# 0.77 X10^3/uL; Monocyte% 6.3 % (0-10); NRBC Flagged by Analyzer 0 % (0-5); Neutrophil # 10.81 X10^3/uL (2.7-7.7); Neutrophil % 87.8 % (47-70); Platelet Count 234 K/mm3 (150-450); RBC Distribution Width CV 13.2 % (11.6-14.6); Red Blood Count 4.33 M/mm3 (4.6-6.2); White Blood Count 12.3 K/mm3 (4.4-11.0)
[2021-07-02 07:14] LABS: Anion Gap 5 (5-15); BUN 13 mg/dL (7-18); BUN/Creat Ratio 14.6 RATIO (10-20); Calcium,Total 8.2 mg/dL (8.5-10.1); Chloride 105 mmol/L (98-107); Creatinine, Serum 0.89 mg/dL (0.70-1.30); EST Glomerular Filtration Rate 95 mL/min (>60); Est Glom Filt Rate - Afr Amer 115 mL/min (>60); Estimated Creatinine Clearance 105.36 ml/min; Glucose 121 mg/dL (74-106); Potassium 4.1 mmol/L (3.5-5.1); Sodium Level 137 mmol/L (136-145)
[2021-07-02] MEDS: HYDROmorphone 1 MG/ML Syringe IV ×4 (07:57→17:57)
[2021-07-02] MEDS: Enoxaparin 40 MG/0.4 ML Syringe SC (08:28)
--- NOTE | 2021-07-02 11:50 | CASEMGMT ---
RN XENA Face to Face with patient for initial transition planning/care coordination assessment. RN CM introduced self and role at [facility]. Patient sitting in chair, alert and oriented, at bedside. Patient willing to participate in assessment and is able to answer all questions appropriately. Care providers, pharmacy, and demographics verified. Patient wishes to discharge home, denies need for home health at this time. Patient states he has no further needs or concerns at this time. CM to follow for discharge planning needs that may arise. PCP: Fabienne Specialists: none Preferred Pharmacy: [facility] Insurance: [employer] Prescription Benefit: yes Living Will/HPOA: none LNOK: Living Arrangements: Patient lives with in a 2 story home. Patient is independent and able to ambulate stairs. Transportation: self/ DME/HHC: Patient states he has raised toilet and crutches at home. Patient denies previous HHC or SNF Disposition Plan: Patient to discharge home with family support and follow-up plans in place. Vianey LAST, RN, CM
--- NOTE | 2021-07-02 12:02 | PCM.PN.SRG ---
Subjective Subjective Patient up and moving. No flatus as of yet. States pain is significantly better. Objective Data Objective Data Dressings are dry. Vital Signs: Vital Signs Temp Pulse Resp BP Pulse Ox 98.2 F 84 16 133/98 H 98 07/02/21 08:30 07/02/21 08:30 07/02/21 08:30 07/02/21 08:30 07/02/21 08:30 Oxygen Flow Rate (L/min) 2 Oxygen Delivery Method Room Air Weight: 208 lb 1.862 oz Body Mass Index (BMI) 28.2 Intake & Output: Intake and Output for Last 24 Hours 06/30/21 07/01/21 07/02/21 23:59 23:59 23:59 Intake Total 1100.5 / 1100.5 2823.25 / 2823.25 1902.92 / 1902.92 Output Total 715 / 715 1180 / 1180 Balance 1100.5 / 1100.5 2108.25 / 2108.25 722.92 / 722.92 Lab / Micro Data Result Diagrams: 07/02/21 05:38 07/02/21 05:38 Labs: Laboratory Results - last 24 hr 07/01/21 14:30: POC Glucose 142 H 07/02/21 05:38: Sodium 137, Potassium 4.1, Chloride 105, Carbon Dioxide 27.0, Anion Gap 5, BUN 13, Creatinine 0.89, Estim Creat Clear Calc 105.36, Est GFR (MDRD) Af Amer 115, Est GFR (MDRD) Non-Af 95, BUN/Creatinine Ratio 14.6, Glucose 121 H, Calcium 8.2 L 07/02/21 05:38: WBC 12.3 H, RBC 4.33 L, Hgb 13.6, Hct 41.0, MCV 94.7 H, MCH 31.4, MCHC 33.2, RDW Std Deviation 46.0 H, RDW Coeff of Juan 13.2, Plt Count 234, MPV 10.2, Immature Gran % (Auto) 0.700, Neut % (Auto) 87.8 H, Lymph % (Auto) 5.0 L, [place] % (Auto) 6.3, Eos % (Auto) 0.0, Baso % (Auto) 0.2, Absolute Neuts (auto) 10.8 H, Absolute Lymphs (auto) 0.62 L, Nucleated RBC % 0 Micro: Microbiology 07/01/21 10:55 Nasal Secretion SARS-CoV-2 Antigen (Rapid) - Final Assessment & Plan Assessment/Plan (1) Diverticulitis of colon with perforation: PLAN: Postoperative day #1 Await GI function. We will leave NG in until starts passing flatus. White count is coming down will remain on IV antibiotics at this time.
--- NOTE | 2021-07-02 12:37 | PN.HOSP_ITS ---
Subjective Subjective Patient seen and examined. He is POD 1 for sigmoid colectomy. He says pain is well controlled and has no active complaints. He is burping but hasnt passed any gas. Review of systems is otherwise negative. Objective Data Objective Data Vital Signs: Vital Signs Temp Pulse Resp BP Pulse Ox 98.2 F 84 16 133/98 H 98 07/02/21 08:30 07/02/21 08:30 07/02/21 08:30 07/02/21 08:30 07/02/21 08:30 Oxygen Flow Rate (L/min) 2 Oxygen Delivery Method Room Air Weight: 208 lb 1.862 oz Body Mass Index (BMI) 28.2 Intake & Output: Intake and Output for Last 24 Hours 06/30/21 07/01/21 07/02/21 23:59 23:59 23:59 Intake Total 1100.5 / 1100.5 2823.25 / 2823.25 1902.92 / 1902.92 Output Total 715 / 715 1180 / 1180 Balance 1100.5 / 1100.5 2108.25 / 2108.25 722.92 / 722.92 Lab / Micro Data Result Diagrams: 07/02/21 05:38 07/02/21 05:38 Labs: Laboratory Results - last 24 hr 07/01/21 14:30: POC Glucose 142 H 07/02/21 05:38: Sodium 137, Potassium 4.1, Chloride 105, Carbon Dioxide 27.0, Anion Gap 5, BUN 13, Creatinine 0.89, Estim Creat Clear Calc 105.36, Est GFR (MDRD) Af Amer 115, Est GFR (MDRD) Non-Af 95, BUN/Creatinine Ratio 14.6, Glucose 121 H, Calcium 8.2 L 07/02/21 05:38: WBC 12.3 H, RBC 4.33 L, Hgb 13.6, Hct 41.0, MCV 94.7 H, MCH 31.4, MCHC 33.2, RDW Std Deviation 46.0 H, RDW Coeff of Juan 13.2, Plt Count 234, MPV 10.2, Immature Gran % (Auto) 0.700, Neut % (Auto) 87.8 H, Lymph % (Auto) 5.0 L, [place] % (Auto) 6.3, Eos % (Auto) 0.0, Baso % (Auto) 0.2, Absolute Neuts (auto) 10.8 H, Absolute Lymphs (auto) 0.62 L, Nucleated RBC % 0 Micro: Microbiology 07/01/21 10:55 Nasal Secretion SARS-CoV-2 Antigen (Rapid) - Final Physical Exam Const alert, oriented x3, no apparent distress and healthy appearing General Appearance: cooperative Exam Limitations: no limitations HEENT normocephalic, head/scalp atraumatic, hearing grossly normal bilaterally and moist oral mucous membranes Head and Scalp: normocephalic Eyes PERRL, EOMs intact bilaterally and conjunctivae normal Neck no lymphadenopathy Resp normal respiratory effort, no retractions, no use of accessory muscles and clear to auscultation bilaterally Cardio regular rate, regular rhythm, S1 normal heart sound, S2 normal heart sound and no murmurs GI normal to inspection, nondistended, normoactive bowel sounds GI Narrative: intact dressing over surgical site. Minimal tenderness on palptation. adequate bowel sounds. Extremity normal to inspection Peripheral Pulses: Yes pulses 2+ throughout Skin no rashes or lesions noted Neuro oriented x3, CN's II-XII intact bilaterally and moves all extremities Sensorium / Orientation: awake and alert Psych affect normal Assessment & Plan Assessment/Plan (1) Diverticulitis: (2) Diverticulitis of colon with perforation: PLAN: #Acute sigmoid diverticulitis with perforation * s/p open sigmoid colectomy. * today is POD 1. * on IV zosyn. on IV morphine for pain * general surgery on board * currently NPO, with ice chips only * wbc is down to 12.3. * #Hypertension: on losartan DVT prophylaxis: lovenox Code status: * full code Charges/Coding Visit Charges Inpatient E&M: 66386 Subs Hosp L2
[2021-07-02] MEDS: HYDROmorphone 0.5 MG/0.5 ML SYRINGE IV ×2 (20:33→23:17)
[2021-07-03] VITALS (10 sets, daily range): BP systolic 135–161; BP diastolic 96–107; PULSE 65–87; RESP 16–18; TEMP 36.6–36.8; O2SAT 96–97
[2021-07-03] MEDS: HYDROmorphone 0.5 MG/0.5 ML SYRINGE IV ×3 (03:46→20:00)
[2021-07-03] MEDS: 0.9% Normal Saline 1,000 ML 125 ML IV ×3 (03:49→20:01)
[2021-07-03 05:27] LABS: Absolute Lymphocyte Count 0.67 X10^3/uL (0.83-4.51); Absolute Neutrophil Count 8.8 X10^3/uL (2.0-7.7); Basophil# 0.02 X10^3/uL; Basophil% 0.2 % (0-1); Eosinophil# 0.16 X10^3/uL; Eosinophils% 1.5 % (0-5); Hemoglobin 13.4 g/dL (13.0-16.5); Lymphocyte # 0.67 X10^3/ul (0.83-4.51); Lymphocyte % 6.4 % (19-41); Mean Corp Hgb Conc 33.5 g/dL (32-36); Mean Corpuscular Hgb 31.3 pg (27.0-32.0); Mean Corpuscular Volume 93.5 fL (80-94); Mean Platelet Vol. 9.2 fl (6.2-12.0); Monocyte# 0.71 X10^3/uL; Monocyte% 6.8 % (0-10); NRBC Flagged by Analyzer 0 % (0-5); Neutrophil # 8.84 X10^3/uL (2.7-7.7); Neutrophil % 84.7 % (47-70); Platelet Count 241 K/mm3 (150-450); RBC Distribution Width CV 13.3 % (11.6-14.6); RBC Distribution Width SD 46.2 fl (35.1-43.9); Red Blood Count 4.28 M/mm3 (4.6-6.2); White Blood Count 10.4 K/mm3 (4.4-11.0)
[2021-07-03 05:47] LABS: Anion Gap 6 (5-15); BUN 16 mg/dL (7-18); Calcium,Total 8.4 mg/dL (8.5-10.1); Chloride 103 mmol/L (98-107); Creatinine, Serum 0.84 mg/dL (0.70-1.30); EST Glomerular Filtration Rate 101 mL/min (>60); Est Glom Filt Rate - Afr Amer 123 mL/min (>60); Estimated Creatinine Clearance 111.63 ml/min; Glucose 119 mg/dL (74-106); Potassium 3.9 mmol/L (3.5-5.1); Sodium Level 137 mmol/L (136-145)
[2021-07-03] MEDS: 0.9% Saline Lock 10 ML Syringe IV ×2 (06:48→17:26)
[2021-07-03] MEDS: Enoxaparin 40 MG/0.4 ML Syringe SC (10:26)
--- NOTE | 2021-07-03 10:52 | PN.SURG_ITS ---
Subjective Subjective Pain is fairly well controlled.Patient states may be small flatus but feels very bloated today. Objective Data Objective Data Still significant amount coming out from NG tube. JUSTO drain is still fairly steady looks slightly yellow somewhat purulent. Vital Signs: Vital Signs Temp Pulse Resp BP Pulse Ox 98.3 F 78 18 161/103 H 96 07/03/21 08:49 07/03/21 08:49 07/03/21 08:49 07/03/21 08:49 07/03/21 08:49 Oxygen Flow Rate (L/min) 2 Oxygen Delivery Method Room Air Weight: 208 lb 1.862 oz Body Mass Index (BMI) 28.2 Intake & Output: Intake and Output for Last 24 Hours 07/01/21 07/02/21 07/03/21 23:59 23:59 23:59 Intake Total 2823.25 / 2823.25 3359.50 / 3359.50 1127.5 / 1127.5 Output Total 715 / 715 1580 / 1580 1165 / 1165 Balance 2108.25 / 2108.25 1779.50 / 1779.50 -37.5 / -37.5 Lab / Micro Data Result Diagrams: 07/03/21 05:12 07/03/21 05:12 Labs: Laboratory Results - last 24 hr 07/03/21 05:12: Sodium 137, Potassium 3.9, Chloride 103, Carbon Dioxide 28.0, Anion Gap 6, BUN 16, Creatinine 0.84, Estim Creat Clear Calc 111.63, Est GFR (MDRD) Af Amer 123, Est GFR (MDRD) Non-Af 101, BUN/Creatinine Ratio 19.0, Glucose 119 H, Calcium 8.4 L 07/03/21 05:12: WBC 10.4, RBC 4.28 L, Hgb 13.4, Hct 40.0, MCV 93.5, MCH 31.3, MCHC 33.5, RDW Std Deviation 46.2 H, RDW Coeff of Juan 13.3, Plt Count 241, MPV 9.2, Immature Gran % (Auto) 0.400, Neut % (Auto) 84.7 H, Lymph % (Auto) 6.4 L, [place] % (Auto) 6.8, Eos % (Auto) 1.5, Baso % (Auto) 0.2, Absolute Neuts (auto) 8.8 H, Absolute Lymphs (auto) 0.67 L, Nucleated RBC % 0 Micro: Microbiology 07/01/21 10:55 Nasal Secretion SARS-CoV-2 Antigen (Rapid) - Final Assessment & Plan Assessment/Plan (1) Diverticulitis of colon with perforation: PLAN: Postop day #2 Still await GI function we will leave NG tube in. White count has normalized which is nice to see.
--- NOTE | 2021-07-03 19:36 | PN.HOSP_ITS ---
Subjective Subjective Patient was seen and examined today, he does not complain of any fevers or chills, he states he has not passed any gas. Patient's blood pressure has been elevated today. Objective Data Objective Data Vital Signs: Vital Signs Temp Pulse Resp BP Pulse Ox 97.9 F 70 18 144/107 H 96 07/03/21 17:28 07/03/21 18:00 07/03/21 17:28 07/03/21 17:28 07/03/21 17:28 Oxygen Flow Rate (L/min) 2 Oxygen Delivery Method Room Air Weight: 94.4 kg Body Mass Index (BMI) 28.2 Intake & Output: Intake and Output for Last 24 Hours 07/01/21 07/02/21 07/03/21 23:59 23:59 23:59 Intake Total 2823.25 / 2823.25 3359.50 / 3359.50 2704.25 / 2704.25 Output Total 715 / 715 1580 / 1580 2365 / 2365 Balance 2108.25 / 2108.25 1779.50 / 1779.50 339.25 / 339.25 Lab / Micro Data Result Diagrams: 07/03/21 05:12 07/03/21 05:12 Labs: Laboratory Results - last 24 hr 07/03/21 05:12: Sodium 137, Potassium 3.9, Chloride 103, Carbon Dioxide 28.0, Anion Gap 6, BUN 16, Creatinine 0.84, Estim Creat Clear Calc 111.63, Est GFR (MDRD) Af Amer 123, Est GFR (MDRD) Non-Af 101, BUN/Creatinine Ratio 19.0, Glucose 119 H, Calcium 8.4 L 07/03/21 05:12: WBC 10.4, RBC 4.28 L, Hgb 13.4, Hct 40.0, MCV 93.5, MCH 31.3, MCHC 33.5, RDW Std Deviation 46.2 H, RDW Coeff of Juan 13.3, Plt Count 241, MPV 9.2, Immature Gran % (Auto) 0.400, Neut % (Auto) 84.7 H, Lymph % (Auto) 6.4 L, [place] % (Auto) 6.8, Eos % (Auto) 1.5, Baso % (Auto) 0.2, Absolute Neuts (auto) 8.8 H, Absolute Lymphs (auto) 0.67 L, Nucleated RBC % 0 Micro: Microbiology 07/01/21 10:55 Nasal Secretion SARS-CoV-2 Antigen (Rapid) - Final Physical Exam Const alert, oriented x3 and no apparent distress General Appearance: cooperative, well kempt and well developed Orientation / Consciousness: awake, oriented to person, oriented to place and oriented to time HEENT normocephalic, head/scalp atraumatic and moist oral mucous membranes Head and Scalp: normocephalic Eyes PERRL, EOMs intact bilaterally and conjunctivae normal Neck nuchal rigidity, supple, no JVD, thyroid normal and no carotid bruits General: trachea midline Resp normal respiratory effort, no retractions, no use of accessory muscles and clear to auscultation bilaterally Auscultation: Negative for rales, rhonchi or wheezes Cardio regular rate, regular rhythm, no murmurs, no rub and no gallops GI soft to palpation GI Narrative: Patient did not have any bowel sounds on examination today Extremity no clubbing, cyanosis or edema Skin no rashes or lesions noted General Skin Exam: no breakdown Neuro oriented x3, CN's II-XII intact bilaterally, no focal motor deficits and no sensory deficits noted Sensorium / Orientation: awake and alert Speech: speech normal Psych thought process normal and affect normal Assessment & Plan Assessment/Plan (1) Diverticulitis of colon with perforation: PLAN: 1. Diverticulitis of the sigmoid colon with perforation-patient remains on antibiotics at this time, general surgery is participating in his care, patient is postop day #2 open sigmoid colectomy. #2 essential hypertension-I have decided to place the patient on IV Vasotec due to his elevated blood pressure Charges/Coding Visit Charges Inpatient E&M: 41956 Subs Hosp L2
[2021-07-03] MEDS: Enalaprilat 1.25 MG/ML Vial 2.5 MG IV (23:19)
[2021-07-04] VITALS (11 sets, daily range): BP systolic 135–148; BP diastolic 89–98; PULSE 52–88; RESP 16–18; TEMP 36.4–37.1; O2SAT 95–98
[2021-07-04] MEDS: HYDROmorphone 0.5 MG/0.5 ML SYRINGE IV ×2 (03:53→12:52)
[2021-07-04] MEDS: 0.9% Normal Saline 1,000 ML 125 ML IV ×3 (03:54→22:50)
[2021-07-04] MEDS: Enalaprilat 1.25 MG/ML Vial 2.5 MG IV ×2 (05:27→12:00)
[2021-07-04 06:10] LABS: Absolute Lymphocyte Count 0.77 X10^3/uL (0.83-4.51); Absolute Neutrophil Count 8.5 X10^3/uL (2.0-7.7); Basophil# 0.03 X10^3/uL; Basophil% 0.3 % (0-1); Eosinophil# 0.27 X10^3/uL; Eosinophils% 2.6 % (0-5); Hematocrit 39.1 % (40-54); Hemoglobin 13.1 g/dL (13.0-16.5); Lymphocyte # 0.77 X10^3/ul (0.83-4.51); Lymphocyte % 7.4 % (19-41); Mean Corp Hgb Conc 33.5 g/dL (32-36); Mean Corpuscular Hgb 31.1 pg (27.0-32.0); Mean Corpuscular Volume 92.9 fL (80-94); Mean Platelet Vol. 9.8 fl (6.2-12.0); Monocyte# 0.81 X10^3/uL; Monocyte% 7.7 % (0-10); NRBC Flagged by Analyzer 0 % (0-5); Neutrophil # 8.54 X10^3/uL (2.7-7.7); Neutrophil % 81.6 % (47-70); Platelet Count 255 K/mm3 (150-450); RBC Distribution Width CV 13.3 % (11.6-14.6); RBC Distribution Width SD 46.1 fl (35.1-43.9); Red Blood Count 4.21 M/mm3 (4.6-6.2); White Blood Count 10.5 K/mm3 (4.4-11.0)
[2021-07-04 06:32] LABS: Anion Gap 8 (5-15); BUN 15 mg/dL (7-18); BUN/Creat Ratio 21.5 RATIO (10-20); Calcium,Total 8.1 mg/dL (8.5-10.1); Chloride 104 mmol/L (98-107); EST Glomerular Filtration Rate 126 mL/min (>60); Est Glom Filt Rate - Afr Amer 153 mL/min (>60); Estimated Creatinine Clearance 133.95 ml/min; Glucose 106 mg/dL (74-106); Potassium 3.4 mmol/L (3.5-5.1); Sodium Level 138 mmol/L (136-145)
[2021-07-04] MEDS: HYDROmorphone 1 MG/ML Syringe IV (08:17)
[2021-07-04] MEDS: Enoxaparin 40 MG/0.4 ML Syringe SC (10:53)
[2021-07-04] MEDS: 0.9% Saline Lock 10 ML Syringe IV ×2 (12:00→12:52)
--- NOTE | 2021-07-04 16:36 | PN.SURG_ITS ---
Subjective Subjective Passing flatus. No bowel movements as of yet. Pain is controlled. Objective Data Objective Data Abdomen is soft. Incision is clean. Vital Signs: Vital Signs Temp Pulse Resp BP Pulse Ox 98.4 F 74 18 143/97 H 97 07/04/21 11:58 07/04/21 15:06 07/04/21 11:58 07/04/21 11:58 07/04/21 11:58 Oxygen Flow Rate (L/min) 2 Oxygen Delivery Method Room Air Weight: 208 lb 1.862 oz Body Mass Index (BMI) 28.2 Intake & Output: Intake and Output for Last 24 Hours 07/02/21 07/03/21 07/04/21 23:59 23:59 23:59 Intake Total 3359.50 / 3359.50 3732.58 / 3732.58 2365.42 / 2365.42 Output Total 1580 / 1580 2705 / 2705 1979 / 1979 Balance 1779.50 / 1779.50 1027.58 / 1027.58 385.42 / 385.42 Lab / Micro Data Result Diagrams: 07/04/21 05:20 07/04/21 05:20 Labs: Laboratory Results - last 24 hr 07/04/21 05:20: Sodium 138, Potassium 3.4 L, Chloride 104, Carbon Dioxide 26.0, Anion Gap 8, BUN 15, Creatinine 0.70, Estim Creat Clear Calc 133.95, Est GFR (MDRD) Af Amer 153, Est GFR (MDRD) Non-Af 126, BUN/Creatinine Ratio 21.5 H, Glucose 106, Calcium 8.1 L 07/04/21 05:20: WBC 10.5, RBC 4.21 L, Hgb 13.1, Hct 39.1 L, MCV 92.9, MCH 31.1, MCHC 33.5, RDW Std Deviation 46.1 H, RDW Coeff of Juan 13.3, Plt Count 255, MPV 9.8, Immature Gran % (Auto) 0.400, Neut % (Auto) 81.6 H, Lymph % (Auto) 7.4 L, [place] % (Auto) 7.7, Eos % (Auto) 2.6, Baso % (Auto) 0.3, Absolute Neuts (auto) 8 .5 H, Absolute Lymphs (auto) 0.77 L, Nucleated RBC % 0 Micro: Microbiology 07/01/21 10:55 Nasal Secretion SARS-CoV-2 Antigen (Rapid) - Final Assessment & Plan Assessment/Plan (1) Diverticulitis of colon with perforation: PLAN: Postoperative day #3. NG tube removed. We will start clear liquids.
--- NOTE | 2021-07-04 18:16 | PN.HOSP_ITS ---
Subjective Subjective Patient was seen and examined today, he is having flatus, I removed his NG tube today under direction of general surgery. Objective Data Objective Data Vital Signs: Vital Signs Temp Pulse Resp BP Pulse Ox 98.7 F 70 16 148/98 H 98 07/04/21 18:13 07/04/21 18:13 07/04/21 18:13 07/04/21 18:13 07/04/21 18:13 Oxygen Flow Rate (L/min) 2 Oxygen Delivery Method Room Air Weight: 94.4 kg Body Mass Index (BMI) 28.2 Intake & Output: Intake and Output for Last 24 Hours 07/02/21 07/03/21 07/04/21 23:59 23:59 23:59 Intake Total 3359.50 / 3359.50 3732.58 / 3732.58 2665.42 / 2665.42 Output Total 1580 / 1580 2705 / 2705 2180 / 2180 Balance 1779.50 / 1779.50 1027.58 / 1027.58 485.42 / 485.42 Lab / Micro Data Result Diagrams: 07/04/21 05:20 07/04/21 05:20 Labs: Laboratory Results - last 24 hr 07/04/21 05:20: Sodium 138, Potassium 3.4 L, Chloride 104, Carbon Dioxide 26.0, Anion Gap 8, BUN 15, Creatinine 0.70, Estim Creat Clear Calc 133.95, Est GFR (MDRD) Af Amer 153, Est GFR (MDRD) Non-Af 126, BUN/Creatinine Ratio 21.5 H, Glucose 106, Calcium 8.1 L 07/04/21 05:20: WBC 10.5, RBC 4.21 L, Hgb 13.1, Hct 39.1 L, MCV 92.9, MCH 31.1, MCHC 33.5, RDW Std Deviation 46.1 H, RDW Coeff of Juan 13.3, Plt Count 255, MPV 9.8, Immature Gran % (Auto) 0.400, Neut % (Auto) 81.6 H, Lymph % (Auto) 7.4 L, [place] % (Auto) 7.7, Eos % (Auto) 2.6, Baso % (Auto) 0.3, Absolute Neuts (auto) 8.5 H, Absolute Lymphs (auto) 0.77 L, Nucleated RBC % 0 Micro: Microbiology 07/01/21 10:55 Nasal Secretion SARS-CoV-2 Antigen (Rapid) - Final Physical Exam Const alert, oriented x3, no apparent distress and healthy appearing General Appearance: cooperative, well kempt and well developed Orientation / Consciousness: awake, oriented to person, oriented to place and oriented to time HEENT normocephalic and moist oral mucous membranes Eyes PERRL, EOMs intact bilaterally and conjunctivae normal Neck nuchal rigidity, supple, no JVD, thyroid normal and no carotid bruits General: trachea midline Resp normal respiratory effort, no retractions, no use of accessory muscles and clear to auscultation bilaterally Auscultation: Negative for rales, rhonchi or wheezes Cardio regular rate, regular rhythm, S1 normal heart sound, S2 normal heart sound, no murmurs, no rub and no gallops GI soft to palpation and non-distended Auscultation: hypoactive bowel sounds Extremity no clubbing, cyanosis or edema Skin no rashes or lesions noted General Skin Exam: no breakdown Neuro oriented x3, CN's II-XII intact bilaterally, no focal motor deficits and no sens ory deficits noted Sensorium / Orientation: awake and alert Speech: speech normal Psych thought process normal and affect normal Assessment & Plan Assessment/Plan (1) Diverticulitis of colon with perforation: PLAN: 1. Diverticulitis of the sigmoid colon with perforation-patient remains on antibiotics at this time, general surgery is participating in his care, patient is postop day #3 open sigmoid colectomy. Patient was put on clear liquids today by general surgery #2 essential hypertension-I have elected at this time to stop his IV Vasotec and monitor his blood pressure without medication. Patient had evidently not been taking medications at home for blood pressure. It may be necessary to resume oral blood pressure medication tomorrow. Charges/Coding Visit Charges Inpatient E&M: 34355 Subs Hosp L2
[2021-07-04] MEDS: oxyCODONE 5 MG Tablet PO (18:17)
[2021-07-05 04:00] VITALS: BP 122/79; PULSE 59; RESP 16; TEMP 37.1; O2SAT 96
[2021-07-05 06:07] LABS: Absolute Lymphocyte Count 0.91 X10^3/uL (0.83-4.51); Basophil# 0.04 X10^3/uL; Basophil% 0.5 % (0-1); Eosinophil# 0.41 X10^3/uL; Eosinophils% 5.1 % (0-5); Hematocrit 35.9 % (40-54); Hemoglobin 12.1 g/dL (13.0-16.5); Lymphocyte # 0.91 X10^3/ul (0.83-4.51); Lymphocyte % 11.3 % (19-41); Mean Corp Hgb Conc 33.7 g/dL (32-36); Mean Corpuscular Hgb 31.3 pg (27.0-32.0); Mean Platelet Vol. 9.5 fl (6.2-12.0); Monocyte# 0.66 X10^3/uL; Monocyte% 8.2 % (0-10); NRBC Flagged by Analyzer 0 % (0-5); Neutrophil # 5.96 X10^3/uL (2.7-7.7); Neutrophil % 74.3 % (47-70); Platelet Count 245 K/mm3 (150-450); RBC Distribution Width CV 13.4 % (11.6-14.6); RBC Distribution Width SD 45.8 fl (35.1-43.9); Red Blood Count 3.86 M/mm3 (4.6-6.2)
[2021-07-05 06:29] LABS: Anion Gap 7 (5-15); BUN 12 mg/dL (7-18); BUN/Creat Ratio 16.9 RATIO (10-20); Calcium,Total 7.9 mg/dL (8.5-10.1); Chloride 106 mmol/L (98-107); Creatinine, Serum 0.71 mg/dL (0.70-1.30); EST Glomerular Filtration Rate 123 mL/min (>60); Est Glom Filt Rate - Afr Amer 149 mL/min (>60); Estimated Creatinine Clearance 132.07 ml/min; Glucose 98 mg/dL (74-106); Potassium 3.5 mmol/L (3.5-5.1); Sodium Level 140 mmol/L (136-145)
[2021-07-05] MEDS: 0.9% Normal Saline 1,000 ML 125 ML IV ×2 (06:41→12:24)
[2021-07-05] MEDS: oxyCODONE 5 MG Tablet PO ×3 (06:49→17:25)
[2021-07-05 07:15] VITALS: PULSE 47
[2021-07-05 10:00] VITALS: BP 139/82; PULSE 68; RESP 16; TEMP 36.8; O2SAT 100
[2021-07-05] MEDS: Enoxaparin 40 MG/0.4 ML Syringe SC (10:22)
--- NOTE | 2021-07-05 12:21 | DS.PCM_ITS ---
Providers Date of Admission: 06/30/21 Primary Care Physician: Dr. David Loving MD Consultations 07/01/21 09:31 Consult: General Surgery Routine Consulting Provider: Kodi Maya Reason for Consult: diverticulitis EMERGENT Consult: No MD Notified: Yes Date Notified: 07/01/21 Time Notified: 09:31 Method of Notification: saw pt on MS3 Reason For Visit: ACUTE SIGMOID DIVERTICULITIS WITH PERFORATION Diagnosis Discharge Diagnosis (1) Diverticulitis of colon with perforation: Status: Acute Code(s): K57.20 - Diverticulitis of large intestine with perforation and abscess without bleeding Medications at Discharge Home Medications amoxicillin-pot clavulanate [Augmentin] 1 tab PO Q12H #10 tab 07/05/21 oxycodone-acetaminophen [Percocet] 1 tab PO Q4H PRN 5 Days #20 tab 07/05/21 Hospital Course Summary of Care Provided Hospital Course: 51-year-old gentleman who presented emergency department with perforated diverticulitis subsequently underwent an open sigmoid colon resection with a handsewn anastomosis. Postoperative course was uncomplicated started moving his bowels passing flatus his drain was subsequently removed his white count had normalized and he was not having any fevers. The time of his discharge his abdomen was soft. Weight / BMI Weight Weight: 208 lb 1.862 oz Body Mass Index (BMI) 28.2 ABG / Lab / Microbiology Data Result Diagrams: 07/05/21 05:42 07/05/21 05:42 Laboratory: Laboratory Results - last 24 hr 07/05/21 05:42: WBC 8.0, RBC 3.86 L, Hgb 12.1 L, Hct 35.9 L, MCV 93.0, MCH 31.3, MCHC 33.7, RDW Std Deviation 45.8 H, RDW Coeff of Juan 13.4, Plt Count 245, MPV 9.5, Immature Gran % (Auto) 0.600, Neut % (Auto) 74.3 H, Lymph % (Auto) 11.3 L, [place] % (Auto) 8.2, Eos % (Auto) 5.1 H, Baso % (Auto) 0.5, Absolute Neuts (auto) 6.0, Absolute Lymphs (auto) 0.91, Nucleated RBC % 0 07/05/21 05:42: Sodium 140, Potassium 3.5, Chloride 106, Carbon Dioxide 27.0, Anion Gap 7, BUN 12, Creatinine 0.71, Estim Creat Clear Calc 132.07, Est GFR (MDRD) Af Amer 149, Est GFR (MDRD) Non-Af 123, BUN/Creatinine Ratio 16.9, Glucose 98, Calcium 7.9 L Microbiology: Microbiology 07/01/21 10:55 Nasal Secretion SARS-CoV-2 Antigen (Rapid) - Final D/C Instructions Discharge Diet: Light diet - advance as tolerated (If you have questions about your diet instructions, please talk to your doctor.) May shower in (days): 1 Call your doctor if your incision/area has: Continuous Slow Oozing, Sudden Increased Bleeding, Increased Pain/ Swelling, Increased Redness and Foul Smelling Discharge Call your doctor if you observe: Fever of 101 or Higher Suture Line Care: Avoid Pulling/Pushing and Avoid Pinching/Bending Additional Dressing/Incision Instructions: Change or remove dressing in 4 days. Leave steri-strips in place for 1 week. Please Follow Up With: Adali Brownlee PA-C When: Call office to schedule an appointment to be seen in about 10 days. Meaningful Use Info Meaningful Use Diagnoses (Choose all that apply): None applicable Discharge Plan Admission Admit Date/Time: 06/30/21 16:12 Attending Provider: Adama Rolon Primary Care Provider: David Loving Consulting Providers: Kodi Maya Discharge Orders/Prescriptions Prescriptions: New oxycodone-acetaminophen [Percocet] 5-325 mg tablet 1 tab PO Q4H PRN (Reason: pain) 5 Days Qty: 20 RF: 0 amoxicillin-pot clavulanate [Augmentin] 875-125 mg tablet 1 tab PO Q12H Qty: 10 RF: 0 Referrals / Follow Up: David Loving MD [Primary Care Provider] - Adali Brownlee PA-C [PHYSICIAN ASSOCIATE DIRECTOR DATA & ANALYTICS] -
--- NOTE | 2021-07-05 12:21 | EX.PCM.DISCH ---
Discharge Instructions Procedure General Surgery Diet Discharge Diet: Light diet - advance as tolerated (If you have questions about your diet instructions, please talk to your doctor.) Activity Discharge Activity: May Not Drive (for 1 week or while taking narcotic pain medicine.) May shower in (days): 1 Lifting Restrictions: 10 pounds Dressing / Incision Call your doctor if your incision/area has: Continuous Slow Oozing, Sudden Increased Bleeding, Increased Pain/ Swelling, Increased Redness and Foul Smelling Discharge Call your doctor if you observe: Fever of 101 or Higher Suture Line Care: Avoid Pulling/Pushing and Avoid Pinching/Bending Additional Dressing/Incision Instructions:: Change or remove dressing in 4 days. Leave steri-strips in place for 1 week. Follow Up Care Please Follow Up With: Adali Brownlee PA-C When: Call office to schedule an appointment to be seen in about 10 days. Test Results: Test results from this visit will be discussed in further detail at your follow-up appointment, if applicable. Discharge Plan Admission Admit Date/Time: 06/30/21 16:12 Attending Provider: Adama Rolon Primary Care Provider: David Loving Consulting Providers: Kodi Maya Discharge Orders/Prescriptions Prescriptions: New oxycodone-acetaminophen [Percocet] 5-325 mg tablet 1 tab PO Q4H PRN (Reason: pain) 5 Days Qty: 20 RF: 0 amoxicillin-pot clavulanate [Augmentin] 875-125 mg tablet 1 tab PO Q12H Qty: 10 RF: 0 Referrals / Follow Up: David Loving MD [Primary Care Provider] - Adali Brownlee PA-C [PHYSICIAN WINDOWS SYSTEMS ARCHITECT] -
[2021-07-05 13:00] VITALS: PULSE 68
[2021-07-05 14:08] VITALS: BP 122/82; PULSE 64; RESP 16; TEMP 36.9; O2SAT 97
[2021-07-05] MEDS: Acetaminophen 325 MG Tablet 650 MG PO (17:24)
--- NOTE | 2021-07-05 19:15 | PN.HOSP_ITS ---
Subjective Subjective Patient was seen and examined today, his blood pressure readings are adequate at this time without the addition of blood pressure medications. Patient has had several bowel movements and surgery has released the patient to go home. I have decided at this time that the patient does not need to be placed on blood p ressure medications, he will be following up with his PCP. Objective Data Objective Data Vital Signs: Vital Signs Temp Pulse Resp BP Pulse Ox 98.4 F 64 16 122/82 H 97 07/05/21 14:08 07/05/21 14:08 07/05/21 14:08 07/05/21 14:08 07/05/21 14:08 Oxygen Flow Rate (L/min) 2 Oxygen Delivery Method Room Air Weight: 94.4 kg Body Mass Index (BMI) 28.2 Intake & Output: Intake and Output for Last 24 Hours 07/03/21 07/04/21 07/05/21 23:59 23:59 23:59 Intake Total 3732.58 / 3732.58 3765.42 / 3765.42 2678.75 / 2678.75 Output Total 2705 / 2705 2302 / 2302 400 / 400 Balance 1027.58 / 1027.58 1463.42 / 1463.42 2278.75 / 2278.75 Lab / Micro Data Result Diagrams: 07/05/21 05:42 07/05/21 05:42 Labs: Laboratory Results - last 24 hr 07/05/21 05:42: WBC 8.0, RBC 3.86 L, Hgb 12.1 L, Hct 35.9 L, MCV 93.0, MCH 31.3, MCHC 33.7, RDW Std Deviation 45.8 H, RDW Coeff of Juan 13.4, Plt Count 245, MPV 9.5, Immature Gran % (Auto) 0.600, Neut % (Auto) 74.3 H, Lymph % (Auto) 11.3 L, [place] % (Auto) 8.2, Eos % (Auto) 5.1 H, Baso % (Auto) 0.5, Absolute Neuts (auto) 6.0, Absolute Lymphs (auto) 0.91, Nucleated RBC % 0 07/05/21 05:42: Sodium 140, Potassium 3.5, Chloride 106, Carbon Dioxide 27.0, Anion Gap 7, BUN 12, Creatinine 0.71, Estim Creat Clear Calc 132.07, Est GFR (MDRD) Af Amer 149, Est GFR (MDRD) Non-Af 123, BUN/Creatinine Ratio 16.9, Glucose 98, Calcium 7.9 L Micro: Microbiology 07/01/21 10:55 Nasal Secretion SARS-CoV-2 Antigen (Rapid) - Final Physical Exam Const alert, oriented x3, no apparent distress and healthy appearing General Appearance: cooperative, well kempt and well developed Orientation / Consciousness: awake, oriented to person, oriented to place and oriented to time HEENT normocephalic and moist oral mucous membranes Eyes PERRL, EOMs intact bilaterally and conjunctivae normal Neck nuchal rigidity, supple, no JVD, thyroid normal and no carotid bruits General: trachea midline Resp normal respiratory effort and clear to auscultation bilaterally Auscultation: Negative for rales, rhonchi or wheezes Cardio regular rate, regular rhythm, S1 normal heart sound, S2 normal heart sound, no murmurs, no rub and no gallops GI normal to inspection, nondistended, normoactive bowel sounds, soft to palpation, non-tender and non-distended Extremity no clubbing, cyanosis or edema Skin no rashes or lesions noted General Skin Exam: no breakdown Neuro oriented x3, CN's II-XII intact bilaterally, no focal motor deficits and no sensory deficits noted Sensorium / Orientation: awake and alert Speech: speech normal Psych thought process normal and affect normal Assessment & Plan Assessment/Plan (1) Diverticulitis of colon with perforation: PLAN: 1. Diverticulitis of the sigmoid colon with perforation #2 essential hypertension-I believe the patient should follow-up with his PCP regarding his blood pressure, at this time I have elected not to place him on any blood pressure medications at the time of discharge home. Charges/Coding Visit Charges Inpatient E&M: 57738 Subs Hosp L2
== END 2021-07-05 18:39 | disposition home or self-care (01) | DRG 231 ==
LOC: ED 16:14 → MS3 16:22
PROVIDERS: Surgery; Admitting Provider Student in an Organized Health Care Education/Training Program; Emergency Provider Emergency Medicine; PCP Family Medicine; Visit Provider Internal Medicine
DX: K57.20 Diverticulitis of large intestine with perforation and abscess without bleeding (principal); I10 Essential (primary) hypertension; Z79.899 Other long term (current) drug therapy; Z87.891 Personal history of nicotine dependence
CPT/HCPCS: 36415; 74176; 80048; 80053; 81001; 82962; 83690; 85025; 87426; 88307; 99283; J7030; J7050; A4216; J2405; J3490

== ENCOUNTER 2022-08-15 22:04 | Emergency (ER) | payer MEDICAID, SELFPAY ==
[2022-08-15 22:06] VITALS: BP 178/90; PULSE 75; RESP 18; TEMP 37; O2SAT 98; BMI 32.8
--- NOTE | 2022-08-15 22:23 | CT_ITS ---
EXAM: CT ABDOMEN AND PELVIS WITH INTRAVENOUS CONTRAST CLINICAL INDICATION: suprapubic abscess TECHNIQUE: Helically acquired images were obtained of the abdomen and pelvis with intravenous contrast. This CT exam was performed using one or more of the following dose reduction techniques: automated exposure control, adjustment of the mA and/or kV according to patient size, and/or use of iterative reconstruction technique. This report was created using [employer] report generation technology. CONTRAST: IV 100mL Isovue-370 RADIATION DOSE: CTDIvol = 18.36 mGy, DLP = 1626.91 mGy-cm. COMPARISON: June 30, 2021. FINDINGS: LOWER THORAX: Unremarkable. Lung bases are clear. No cardiomegaly. No significant pericardial effusion. ABDOMEN: LIVER: Unremarkable. Homogeneous. No focal mass. GALLBLADDER AND BILE DUCTS: Unremarkable. No calcified gallstones. No gallbladder distention or wall edema. No intra- or extrahepatic biliary ductal dilation. PANCREAS: Unremarkable. No focal cystic or solid mass. SPLEEN: Unremarkable. Normal size without focal cystic or solid mass. ADRENALS: Unremarkable. No nodules. KIDNEYS AND URETERS: Unremarkable. Normal renal size and position. No hydronephrosis. STOMACH AND BOWEL: Mild fluid and gas in the stomach small bowel. Moderate gas and stool in the proximal half of the colon, mild gas and stool in the distal colon. Short sigmoid and sigmoid anastomosis from prior exam. Moderate diverticulosis from the splenic flexure to the anastomosis, no evidence of acute diverticulitis. Mild discrepancy in size of small bowel loops, some mildly prominent small bowel loops have a to 2.4 cm in the right mid abdomen may be due to early or low-grade obstruction, no high-grade small bowel obstruction. PELVIS: APPENDIX: No evidence of acute appendicitis. BLADDER: Only mildly distended urinary bladder with 5 mm wall most likely due to incomplete distention. REPRODUCTIVE: Unremarkable as visualized. No mass. ABDOMEN and PELVIS: INTRAPERITONEAL SPACE: Unremarkable. No ascites or other fluid collection. No free air. BONES/JOINTS: Mild degenerative spine changes, no significant spinal stenosis. No suspicious lytic or blastic abnormality. SOFT TISSUES: Slight fat inguinal rings. Postoperative change of the umbilicus, new from prior exam, apparent hernia repair and sheath. Mild soft tissue stranding and skin thickening in the suprapubic region, no fluid collection. Small bilateral inguinal nodes, similar to prior exam. VASCULATURE: Unremarkable. Abdominal aorta is non-dilated. LYMPH NODES: See above. CT/Abdomen/Pelvis W IV Cont ONLY IMPRESSION: 1. No suprapubic abscess. Minimal skin thickening and mild right greater than left subcutaneous soft tissue stranding in the suprapubic body wall. Well-healed infraumbilical incision. 2. Umbilical hernia repair and partial sigmoidectomy, new findings from exam in 2020. Persistent moderate diverticulosis in the residual left colon. No evidence of acute diverticulitis or appendicitis. 3. Mild discrepancy in size of small bowel loops, not convincing for a significant degree of obstruction. Electronically Signed: Della Paredes MD at 23:47 EST ,
--- NOTE | 2022-08-15 22:32 | EDS_ITS ---
HPI History of Present Illness Chief Complaint: Abscess Narrative Narrative: Patient is a 52-year-old male with past medical history of diverticulitis requiring surgery roughly 6 months to a year ago and developed secondary MRSA infection. Otherwise he denies any medical issues and states he is not immunosuppressed. He reports over the past 3 to 5 days he developed some pain and swelling in the genital/suprapubic region. He states in the last day the area has now become ulcerated and draining. He is concerned for a an infection secondary to this and therefore comes in for evaluation. PFSH PFS Medical History Asthma Back pain due to injury Depression Diverticulitis Former smoker GERD (gastroesophageal reflux disease) Hypertension Substance abuse Home Medications clindamycin HCl 300 mg capsule 300 mg PO 4X/DAY 10 days #40 caps 08/16/22 [Rx Last Taken Unknown] oxycodone-acetaminophen 5 mg-325 mg tablet (Percocet) 1 tab PO Q6H PRN pain 3 days #12 tabs 08/16/22 [Rx Last Taken Unknown] Allergy/AdvReac Type Severity Reaction Status Date / Time No Known Allergies Allergy Verified 08/15/22 22:08 Social History Smoking Status: Former smoker substance use type: does not use ROS ROS ED Constitutional Constitutional ED: Denies chills or fever(s) ENT ENT ED: Denies sore throat Cardiovascular Cardiovascular: Denies chest pain Respiratory/Chest Respiratory/Chest: Denies cough or dyspnea Gastrointestinal Gastrointestinal: Reports abdominal pain; Denies diarrhea, nausea or vomiting Genitourinary Genitourinary ED: Denies dysuria or hematuria Musculoskeletal Musculoskeletal: Denies myalgias Integumentary Reports abscess; Denies rash Neurologic Neurologic: Denies headache(s) Hematologic/Lymphatic Hematologic/Lymphatic: Denies easy bleeding or easy bruising EXAM Physical Exam Const Vital Signs: 08/15/22 22:06 Temperature 98.6 F Temperature Source Temporal Pulse Rate 75 Respiratory Rate 18 Blood Pressure 178/90 H Blood Pressure Mean 119 Pulse Ox 98 Oxygen Delivery Method Room Air Positive well nourished and well developed General Appearance ED: well developed Eyes PERRL and EOMs intact bilaterally Neck supple Resp normal respiratory effort and clear to auscultation bilaterally Cardio regular rate and regular rhythm GI normal to inspection, nondistended, normoactive bowel sounds, non-tender and non-distended Auscultation: normoactive bowel sounds Palpation: soft Narrative: In the suprapubic region there is a 1 x 1 cm area of of ulceration with scant amount of purulent discharge present. There is a 2 x 2 centimeter area of surro unding warmth induration and redness consistent with cellulitis. No lymphangitic streaking is noted. No soft tissue changes extending down into the penis or genitals to suggest Aniya's gangrene. Extremity normal to inspection Neuro oriented x3 and CN's II-XII intact bilaterally Sensorium / Orientation: alert Psych mental status grossly normal Skin Skin Narrative: Soft tissue changes in the suprapubic area consistent with cellulitis and abscess as documented above MDM MDM MDM Narrative Medical decision making narrative: Patient presented with cellulitis and potential abscess in the suprapubic region. There is no obvious signs of systemic infection and I do not know changes concerning for Aniya's gangrene. However with the area of infection occurring in the genital region I did elect to perform basic labs and a CT scan. Labs revealed no clinically significant findings and CAT scan shows inflammation of the soft tissue without drainable abscess or gas formation. Therefore at this time patient to be given oral antibiotics and discharged home as the work-up reveals no signs of systemic infection or need for surgical intervention Lab Data Attestation: I reviewed the patient's lab results. Labs: Laboratory Results - last 24 hr 08/15/22 08/15/22 08/15/22 22:30 22:30 22:30 WBC 4.4 RBC 5.00 Hgb 15.9 Hct 46.4 MCV 92.8 MCH 31.8 MCHC 34.3 RDW Std Deviation 41.9 RDW Coeff of Juan 12.2 Plt Count 230 MPV 9.4 Immature Gran % (Auto) 0.200 Neut % (Auto) 39.9 L Lymph % (Auto) 39.7 [place] % (Auto) 13.8 H Eos % (Auto) 5.9 H Baso % (Auto) 0.5 Absolute Neuts (auto) 1.8 L Absolute Lymphs (auto) 1.76 Nucleated RBC % 0 Sodium 142 Potassium 4.2 Chloride 107 Carbon Dioxide 30.0 Anion Gap 5 BUN 13 Creatinine 1.01 Estim Creat Clear Calc 89.05 Est GFR (MDRD) Af Amer 99 Est GFR (MDRD) Non-Af 82 BUN/Creatinine Ratio 12.9 Glucose 88 Lactic Acid 0.8 Calcium 8.7 Radiography Diagnostic Testing: Clinical Impression(s) from Imaging Studies Abdomen/Pelvis CT 08/15/22 22:23 IMPRESSION: 1. No suprapubic abscess. Minimal skin thickening and mild right greater than left subcutaneous soft tissue stranding in the suprapubic body wall. Well-healed infraumbilical incision. 2. Umbilical hernia repair and partial sigmoidectomy, new findings from exam in 2020. Persistent moderate diverticulosis in the residual left colon. No evidence of acute diverticulitis or appendicitis. 3. Mild discrepancy in size of small bowel loops, not convincing for a significant degree of obstruction. Electronically Signed: Della Paredes MD at 23:47 EST Reading Location ID and State: [address] [place] [address] Tel , Service support , Discharge Plan Triage Chief Complaint: Abscess ED Provider: Sami Avila Dx/Rx/DC Orders Clinical Impression: Cellulitis of suprapubic region, History of hypertension Instructions: Cellulitis Dc Prescriptions: New clindamycin HCl 300 mg capsule 300 mg PO 4X/DAY 10 Days Qty: 40 0RF oxycodone-acetaminophen [Percocet] 5-325 mg tablet 1 tab PO Q6H PRN (Reason: pain) 3 Days Qty: 12 0RF Primary Care Provider: David Loving Referrals: David Loving MD [Primary Care Provider] - Activity Restrictions/Additional Instructions: Your labs and CAT scan do not show any systemic infection or need for drainage. Take your antibiotics as directed to resolve the infection and return to the ER should you have any further concerns Disposition Disposition: Home, Self Care
[2022-08-15] MEDS: 0.9% Normal Saline 1,000 ML 999 ML IV (22:35)
[2022-08-15] MEDS: Morphine 4 MG/ML Syringe IV (22:35)
[2022-08-15] MEDS: Ondansetron 4 MG/2 ML Vial IV (22:35)
[2022-08-15 22:50] LABS: Absolute Lymphocyte Count 1.76 X10^3/uL (0.83-4.51); Absolute Neutrophil Count 1.8 X10^3/uL (2.0-7.7); Basophil# 0.02 X10^3/uL; Basophil% 0.5 % (0-1); Eosinophil# 0.26 X10^3/uL; Eosinophils% 5.9 % (0-5); Hematocrit 46.4 % (40-54); Hemoglobin 15.9 g/dL (13.0-16.5); Lymphocyte # 1.76 X10^3/ul (0.83-4.51); Lymphocyte % 39.7 % (19-41); Mean Corp Hgb Conc 34.3 g/dL (32-36); Mean Corpuscular Hgb 31.8 pg (27.0-32.0); Mean Corpuscular Volume 92.8 fL (80-94); Mean Platelet Vol. 9.4 fl (6.2-12.0); Monocyte# 0.61 X10^3/uL; Monocyte% 13.8 % (0-10); NRBC Flagged by Analyzer 0 % (0-5); Neutrophil # 1.77 X10^3/uL (2.7-7.7); Neutrophil % 39.9 % (47-70); Platelet Count 230 K/mm3 (150-450); RBC Distribution Width CV 12.2 % (11.6-14.6); RBC Distribution Width SD 41.9 fl (35.1-43.9); White Blood Count 4.4 K/mm3 (4.4-11.0)
[2022-08-15 23:02] LABS: Anion Gap 5 (5-15); BUN 13 mg/dL (7-18); BUN/Creat Ratio 12.9 RATIO (10-20); Calcium,Total 8.7 mg/dL (8.5-10.1); Chloride 107 mmol/L (98-107); Creatinine, Serum 1.01 mg/dL (0.70-1.30); EST Glomerular Filtration Rate 82 mL/min (>60); Est Glom Filt Rate - Afr Amer 99 mL/min (>60); Estimated Creatinine Clearance 89.05 ml/min; Glucose 88 mg/dL (74-106); Potassium 4.2 mmol/L (3.5-5.1); Sodium Level 142 mmol/L (136-145)
[2022-08-15 23:24] LABS: Lactic Acid 0.8 mmol/L (0.4-1.9)
[2022-08-16 02:01] VITALS: PULSE 79; RESP 15; O2SAT 99
== END 2022-08-16 02:02 | disposition home or self-care (01) ==
PROVIDERS: Emergency Provider Emergency Medicine; PCP Family Medicine; Visit Provider Emergency Medicine
DX: L03.314 Cellulitis of groin (principal); I10 Essential (primary) hypertension; Z87.891 Personal history of nicotine dependence; L02.214 Cutaneous abscess of groin
CPT/HCPCS: 74177; 80048; 83605; 85025; 96361; 96365; 96366; 96375; 99283; J7030; J7040; Q9967; J2405

== ENCOUNTER 2023-07-15 21:48 | Emergency (ER) | payer BC, SELFPAY ==
[2023-07-15 21:49] VITALS: BP 144/105; PULSE 62; RESP 16; TEMP 36.4; O2SAT 100; BMI 32.1
--- NOTE | 2023-07-15 22:19 | EDS_ITS ---
HPI History of Present Illness Chief Complaint: Dental Informant: patient and spouse/S.O. Narrative Narrative: Worsening dental pain right upper today mild symptoms last few days. Hot sensitivities. Ice makes it better. No fevers. Has not seen a dentist in a few years. Has had dental fillings. Has an appointment 10 days. [facility] Medical History Asthma Back pain due to injury Depression Diverticulitis Former smoker GERD (gastroesophageal reflux disease) Hypertension Substance abuse Home Medications penicillin V potassium 500 mg tablet 500 mg PO 4X/DAY #40 tabs 07/15/23 [Rx Last Taken Unknown] Allergy/AdvReac Type Severity Reaction Status Date / Time No Known Allergies Allergy Verified 07/15/23 21:50 Family History no significant family his Social History Smoking Status: Former smoker substance use type: does not use ROS ROS ED Constitutional Constitutional ED: Denies chills, fever(s) or sweats Eyes Eyes: Denies change in vision ENT ENT ED: Reports other Details: Dental pain ; Denies dysphagia or sore throat Cardiovascular Cardiovascular: Denies chest pain, leg edema, palpitations or racing heartbeat Respiratory/Chest Respiratory/Chest: Denies cough, dyspnea or dyspnea on exertion Gastrointestinal Gastrointestinal: Denies abdominal pain, diarrhea, nausea or vomiting Genitourinary Genitourinary ED: Denies dysuria, hematuria or urinary frequency Musculoskeletal Musculoskeletal: Denies back pain, extremity pain or neck pain Integumentary Denies rash or wounds Neurologic Neurologic: Denies headache(s), paresthesias or weakness EXAM Physical Exam Const Vital Signs: 07/15/23 21:49 07/15/23 22:51 Temperature 97.6 F L Temperature Source Temporal Pulse Rate 62 Respiratory Rate 16 16 Blood Pressure 144/105 H Blood Pressure Mean 118 Pulse Ox 100 Oxygen Delivery Method Room Air Positive well nourished and well developed General Appearance ED: well developed and NAD HEENT Reports moist mucous membranes HEENT Narrative: Tender to percussion tooth #3 and 4 missing tooth #2. No fluctuance of the gums. Airway patent. normocephalic and atraumatic Eyes PERRL, EOMs intact bilaterally and conjunctivae normal General Eye ED: Yes normal appearance of both eyes Neck no lymphadenopathy and supple General: Negative for tenderness Chest Wall Chest: Negative for tenderness Resp normal respiratory effort and normal air movement Effort and Inspection: symmetric chest movement; Negative for respiratory distress Cardio regular rate, regular rhythm and no murmurs Peripheral Pulses: pulses 2+ throughout GI normal to inspection, nondistended, normoactive bowel sounds and non-tender Palpation: Negative for guarding or rebound tenderness present Back/Spine no CVA tenderness and no thoracic nor lumbar tenderness Extremity normal to inspection General Extremety ED: Negative for edema or tenderness General Extremity: Negative for edema Neuro oriented x3 and no sensory deficits noted Sensorium / Orientation: awake and alert Skin no rashes or lesions noted and no wounds MDM MDM MDM Narrative Medical decision making narrative: Interventions / MDM: Differential diagnosis: Dentalgia, dental caries Diagnosis considered but do not suspect: N/A My EKG interpretation: N/A Imaging independently reviewed and interpreted by myself: N/A External documents reviewed: N/A Test considered but not ordered:N/A ED course: Vital stable nontoxic. Dentalgia with dental feelings. He has hot sensitivities. Started on penicillin with meds to bed to start taking. Using Tylenol or Motrin. He is on cancellation list for his dentist with appointment 10 days. He will keep that appointment for definitive treatment. All questions were answered. Re-evaluation: stable Disposition discussed with patient/family/significant other: Patient and significant other Case discussed with consulting clinician: N/A This note was generated with [employer] dictation software. It may contain incorrect words, spelling, and punctuation that were not noted in checking the note before signing. Discharge Plan Triage Chief Complaint: Dental ED Provider: Sahil Doe Dx/Rx/DC Orders Clinical Impression: Dental caries, Dentalgia Instructions: ED Dental Pain, ED Dental Cavity Prescriptions: New penicillin V potassium 500 mg tablet 500 mg PO 4X/DAY Qty: 40 0RF Primary Care Provider: David Loving Referrals: David Loving MD [Primary Care Provider] - Activity Restrictions/Additional Instructions: Take antibiotic as prescribed. Use Tylenol 1 g every 6 hours as needed. May also use ibuprofen up to 600 mg every 6 hours as needed. Follow-up with your dentist for definitive treatment. Disposition Disposition: Home, Self Care Discharge Date/Time: 07/15/23 22:52
[2023-07-15 22:51] VITALS: RESP 16
== END 2023-07-15 22:52 | disposition home or self-care (01) ==
LOC: ED 22:25
PROVIDERS: Emergency Provider Emergency Medicine; PCP Family Medicine; Visit Provider Emergency Medicine
DX: K02.9 Dental caries, unspecified (principal); Z87.891 Personal history of nicotine dependence
CPT/HCPCS: 99282